=== PATIENT | female | born 1965 | race Caucasian/White ===

== ENCOUNTER 2016-04-21 09:41 | Day surgery (SDC) | payer BC ==
[2016-04-20 15:16] VITALS: BMI 37.8
[~2016-04-21 09:41] MED LIST: BENZOCAINE SPRAY 100 APPLIC/CAN ONE; BENZOCAINE SPRAY 100 APPLIC/CAN TOPICAL PRN
[2016-04-21 10:02] VITALS: RESP 16; TEMP 97.6
[2016-04-21] MEDS ORDERED: SODIUM CHLORIDE 0.9% 500 ML IV ONE (10:20)
[2016-04-21] MEDS ORDERED: MIDAZOLAM 2 MG/2 ML VIAL ONE (10:50)
[2016-04-21] MEDS ORDERED: fentaNYL (PF) 50 MCG/ML 2 ML AMP ONE (10:51)
[2016-04-21] MEDS ORDERED: BENZOCAINE SPRAY 100 APPLIC/CAN MUCOUS MEM ONE (11:10)
[2016-04-21] MEDS ORDERED: MIDAZOLAM 2 MG/2 ML VIAL IV ONE (11:10)
[2016-04-21] MEDS ORDERED: fentaNYL (PF) 50 MCG/ML 2 ML AMP IV ONE (11:15)
--- NOTE | 2016-04-21 12:06 | ECHOT ---
DATE OF SERVICE: CLINICAL INFORMATION: This transesophageal echocardiogram was done to evaluate the patient's tricuspid and mitral regurgitation as well as enlargement of the right atrium and right ventricle. Patient was given intravenous sedation with Versed and fentanyl and under moderate sedation, transesophageal echocardiogram was performed without any complications. PROCEDURE: The left ventricular chamber is normal in size with normal left ventricular systolic functions. Mitral valve morphology is normal. There is no evidence of mitral valve prolapse. There is mild mitral regurgitation noted. Left atrium is normal in size, left atrial appendage is clear. There is no evidence of any thrombus. Right ventricular chamber is mildly enlarged. Right atrium is moderately enlarged. Interatrial septum is intact. There is no evidence of PFO by saline contrast study. There is no evidence of any atrial septal defect. There is a moderate degree of tricuspid regurgitation noted which appears to be eccentric. FINAL IMPRESSION: 1. There is a mild degree of right ventricular, moderate degree of right atrial enlargement noted. Interatrial septum is intact. There is no evidence of patent foramen ovale or atrial septal defect. Further evaluation with a sleep study is suggested to rule out any evidence of significant sleep apnea. 2. There is a moderate degree of tricuspid regurgitation and mild degree of mitral regurgitation noted. Mitral valve morphology is normal. Aortic valve morphology is normal. The left ventricular systolic function is normal.
[2016-04-21 12:43] VITALS: BP 96/53; PULSE 64
== END 2016-04-21 12:52 | disposition home or self-care (01) ==
LOC: CATHCVL 09:41
PROVIDERS: ATTEND Internal Medicine Cardiovascular Disease
DX: I34.0 Nonrheumatic mitral (valve) insufficiency (principal); I36.1 Nonrheumatic tricuspid (valve) insufficiency; G47.30 Sleep apnea, unspecified; E66.9 Obesity, unspecified; Z68.37 Body mass index [BMI] 37.0-37.9, adult; Z79.51 Long term (current) use of inhaled steroids; Z79.899 Other long term (current) drug therapy; Z88.8 Allergy status to other drugs, medicaments and biological substances; Z98.84 Bariatric surgery status; Z87.891 Personal history of nicotine dependence
CPT/HCPCS: 93312; 93320; 93325; 99152; J2250; J3010

== ENCOUNTER → 2017-08-03 | Outpatient (CLI) | payer BC ==
[2017-08-03 18:35] LABS: Appearance,CSF Clear; CSF Tube Number 4; CSF Tube Volume 2.75; Nucleated Cells, CSF 0 u/L (0-5); Red Blood Cell,CSF 0 u/L (0-10)
[2017-08-03 18:39] LABS: Total Protein,CSF 23 mg/dL (12-60)
[2017-08-05 14:23] LABS: IgG - CSF 1.4 mg/dL (0.0 - 3.4); IgG/Albumin Index (CSF) 0.52 (0.00 - 0.77); Immunoglobulin G 941 mg/dL (700 - 1600)
== END | disposition home or self-care (01) ==
LOC: LABWHC1 15:36
PROVIDERS: ATTEND Psychiatry & Neurology Pain Medicine
DX: L98.9 Disorder of the skin and subcutaneous tissue, unspecified (principal); R42 Dizziness and giddiness; H53.8 Other visual disturbances; R90.82 White matter disease, unspecified
CPT/HCPCS: 36415; 82040; 82042; 82784; 83873; 83916; 84157; 87476; 88108; 89050

== ENCOUNTER 2017-12-14 11:28 | Day surgery (SDC) | payer BC, MEDICARE ==
[~2017-12-14 11:28] MED LIST changes: -BENZOCAINE SPRAY 100 APPLIC/CAN ONE; -BENZOCAINE SPRAY 100 APPLIC/CAN TOPICAL PRN; +SODIUM CHLORIDE 0.9% 1,000 ML IV SCH
[2017-12-14 11:59] VITALS: BP 127/80; TEMP 98
[2017-12-14 13:41] VITALS: PULSE 62; RESP 16
--- NOTE | 2017-12-14 17:47 | P.PCN ---
Preoperative Diagnosis: Diagnosis Recurrent blurring of vision and dizzy spells Twelve-lead ECG shows sinus rhythm normal DE narrow QRS normal ST segments no delta waves no epsilon waves normal QT interval Tilt table test per protocol Baseline blood pressure 127/60 mmHg Baseline heart rate 65 beats a minute patient was tilted upright at night with of 70 per protocol there is no change in her blood pressure no symptoms of progression is laid supine at the end of the procedure Impression Normal 12-lead ECG Normal heart rate and blood pressure response to upright tilting
== END 2017-12-14 13:58 | disposition home or self-care (01) ==
LOC: CATHEP 11:28
PROVIDERS: ATTEND Internal Medicine Clinical Cardiac Electrophysiology
DX: R42 Dizziness and giddiness (principal); H53.8 Other visual disturbances
CPT/HCPCS: 93005; 93660

== ENCOUNTER → 2018-01-12 | Outpatient (CLI) | payer BC, MEDICARE ==
[2018-01-12 11:22] LABS: Anisocytosis Slight; HCT 34.7 % (34.0-46.0); HGB 10.9 gm/dL (11.4-16.0); Hypochromasia Moderate; MCH 26.1 pg (25.0-35.0); MCHC 31.5 g/dL (31.0-37.0); MCV 82.8 fL (80.0-100.0); Mean Platelet Volume 10.5; Platelet Count 129 k/uL (150-450); RBC 4.19 m/uL (3.80-5.40); WBC 5.6 k/uL (3.8-10.6)
[2018-01-12 14:29] LABS: Erythrocyte Sedimentation Rate 32 mm/hr (0-20)
[2018-01-12 17:04] LABS: Folate, Serum 6.9 ng/mL
[2018-01-12 17:40] LABS: Iron Saturation 5.12 (12.00-45.00)
[2018-01-12 18:01] LABS: ALT 15 U/L (8-44); AST 22 U/L (13-35); Albumin/Globulin Ratio 1.87 (1.20-2.10); Alkaline Phosphatase 92 U/L (41-126); C Reactive Protein <0.4 mg/dL (0.0-0.8); Calcium 8.6 mg/dL (8.7-10.3); Carbon Dioxide 27.4 mmol/L (21.6-31.8); Chloride 105 mmol/L (96-109); Globulin 2.3 g/dL (2.1-3.7); Glucose 83 mg/dL (70-110); Potassium 3.9 mmol/L (3.5-5.5); Sodium 138 mmol/L (135-145); Total Bilirubin 0.4 mg/dL (0.3-1.2); Total Protein 6.6 g/dL (6.2-8.2)
[2018-01-14 12:01] LABS: Vitamin B1 55 ug/L (38-122)
== END ==
LOC: LABWHC1 10:13
PROVIDERS: ATTEND Psychiatry & Neurology Pain Medicine
DX: D50.9 Iron deficiency anemia, unspecified (principal); M25.50 Pain in unspecified joint; R53.83 Other fatigue; R42 Dizziness and giddiness
CPT/HCPCS: 36415; 80053; 82607; 82728; 82746; 83540; 83550; 84207; 84425; 84439; 84443; 84466; 84481; 84591; 85027; 85652; 86140

== ENCOUNTER 2018-01-26 18:36 | Inpatient (IN) | payer BC, MEDICARE ==
--- NOTE | 2018-01-26 20:37 | US ---
EXAMINATION TYPE: US venous doppler duplex LE LT DATE OF EXAM: 01/26/2018 8:26 PM COMPARISON: NONE CLINICAL HISTORY: tenderness. Left medial thigh area of pain and redness x 1 day SIDE PERFORMED: Left TECHNIQUE: The lower extremity deep venous system is examined utilizing real time linear array sonog sydni with graded compression, doppler sonography and color-flow sonography. VESSELS IMAGED: External Iliac Vein (EIV) Common Femoral Vein Deep Femoral Vein Greater Saphenous Vein * Femoral Vein Popliteal Vein Small Saphenous Vein * Proximal Calf Veins (* superficial vessels) Difficult and limited study due to patient body habitus, unable to do compression images at mid and distal femoral vein due to patient unable to tolerate probe pressure. Left Leg: Appears negative for DVT Grayscale, color doppler, spectral doppler imaging performed of the deep veins of the left lower extr emity. There is normal flow, compressibility, vascular waveforms. Left lower extremity subcutaneous edema is seen. IMPRESSION: No sonographic evidence of left lower extremity deep venous thrombosis. There is left lo wer extremity subcutaneous edema noted.
--- NOTE | 2018-01-26 20:41 | ED ---
General Adult HPI - General Chief complaint: Extremity Problem,Nontraumatic Stated complaint: poss blood clot Time Seen by Provider: 01/26/18 18:58 Source: patient Mode of arrival: ambulatory Limitations: no limitations - History of Present Illness Initial comments: 52-year-old female with past medical history of migraines, gastric bypass 5 years ago, superficial blood clots, peripheral edema present today for chief complaint of left mid thigh pain and redness x1 day. She states that she woke up this morning and had pain in her right anterior thigh and noticed redness, she was concerned about blood clot that she presented for evaluation. Patient also noted that she has had cold-like symptoms with congestion, cough, chills. She does admit to a headache, however she states she has migraines daily and this is no different from her usual headaches. Patient denies any fever, diarrhea, constipation or abdominal pain, nausea, vomiting, emesis, melena, hematochezia, calf pain, hemoptysis, chest pain, shortness of breath, dyspnea upon exertion. Patient does admit to increasing swelling of her baseline peripheral edema as well as redness. Patient was seen by a provider at [facility] earlier today who did evaluate legs however did not prescribe her any medication patient was told to follow-up with primary care provider. Pt was at [facility] for evaluation of low iron, low platelets, and various vitamin deficiencies. Remainder of ROS (-). Upon arrival pt vital signs stable. - Related Data Home Medications Medication Instructions Recorded Confirmed Gabapentin 800 mg PO TID 05/08/14 12/14/17 Imptb-U-Gowrderqehxli [Beano] 300 units PO DAILY 05/15/14 12/14/17 Biotin 5 mg PO DAILY 05/15/14 12/14/17 Cholecalciferol [Vitamin D3] 1,000 unit PO DAILY 05/15/14 12/14/17 Cyanocobalamin [Vitamin B-12 1 ml IM QMONTH 05/15/14 12/14/17 Injection] Nystatin 100,000 Unit/gm Powd 1 applic TOPICAL BID PRN 05/15/14 12/14/17 [Mycostatin Powder] SUMAtriptan SUCCINATE [Imitrex] 25 - 50 mg PO DAILY PRN 05/15/14 12/14/17 Sennosides/Docusate Sodium [Elle 1 tab PO DAILY 05/15/14 12/14/17 Colace] HYDROcodone/APAP 5-325MG [Wadley 1 tab PO Q6HR PRN 04/20/16 12/14/17 5-325] Butalb/Acetaminophen/Caffeine 1 cap PO Q8HR PRN 12/14/17 12/14/17 [Fioricet 50-325-40] Cyclobenzaprine [Flexeril] 5 mg PO HS 12/14/17 12/14/17 Florical 1 caplet PO DAILY 12/14/17 12/14/17 Fluticasone Nasal [place] [Flonase 1 spray NASAL DAILY 12/14/17 12/14/17 Nasal [place]] Pramipexole Di-HCl [Pramipexole 1.5 mg PO RT-TID 12/14/17 12/14/17 Dihydrochloride] Rasagiline Mesylate [Azilect] 1 mg PO DAILY 12/14/17 12/14/17 Allergies Allergy/AdvReac Type Severity Reaction Status Date / Time sucralfate [From Carafate] Allergy ULCERS TO Verified 01/26/18 18:57 MOUTH AND THROAT Review of Systems ROS Statement: Those systems with pertinent positive or pertinent negative responses have been documented in the HPI. ROS Other: All systems not noted in ROS Statement are negative. Constitutional: Denies: fever, chills, night sweats ENT: Reports: as per HPI (congestion). Denies: ear pain, throat pain Respiratory: Reports: as per HPI, cough. Denies: dyspnea, wheezes, hemoptysis, stridor Cardiovascular: Denies: chest pain, palpitations Gastrointestinal: Denies: abdominal pain, nausea, vomiting, diarrhea, constipation, hematemesis, melena, hematochezia Genitourinary: Denies: urgency, dysuria, frequency, hematuria Musculoskeletal: Reports: myalgia (left anterior thigh redness, pain to palpation) Skin: Reports: change in color (redness of the LE bilaterally). Denies: rash, lesions Neurological: Reports: headache (daily headaches-no changes). Denies: weakness , numbness, paresthesias, confusion, abnormal gait Past Medical History Past Medical History: Musculoskeletal Disorder, Neurologic Disorder, Osteoarthritis (OA), Sleep Apnea/CPAP/BIPAP Additional Past Medical History / Comment(s): HX MIGRAINES,LYMPHEDEMA MELISSA LEGS, CELLULITIS, DOES NOT USE CPAP,CHRONIC BACK PAIN-BULGING DISC, LACTOSE INTOLERANT, neuropathy, hx. heart murmur-"valve problems" per pt., has lost 200 pounds from bariatric surg., hx. subcu. emphysema after a perforated trachea from a difficult intubation History of Any Multi-Drug Resistant Organisms: None Reported Date of last positivie culture/infection: 2007 MDRO Source:: stool Past Surgical History: Bariatric Surgery, Hysterectomy, Joint Replacement, Orthopedic Surgery Additional Past Surgical History / Comment(s): arthroscopy knee, bilateral knee replacement, gastric bypass 2012, pain procedures Past Anesthesia/Blood Transfusion Reactions: Previous Problems w/ Anesthesia Additional Past Anesthesia/Blood Transfusion Reaction / Comment(s): hx. perforated trachea from a past intubation for knee surg., has needed fiber optic intubation or "glide scope" due to scar tissue since Past Psychological History: No Psychological Hx Reported Smoking Status: Former smoker Past Alcohol Use History: Occasional Past Drug Use History: None Reported - Past Family History Mother Family Medical History: No Reported History Father Family Medical History: No Reported History General Exam - General Exam Comments Initial Comments: General: The patient is awake and alert, in no distress, and does not appear acutely ill. Eye: Pupils are equal, round and reactive to light, extra-ocular movements are intact. No nystagmus. There is normal conjunctiva bilaterally. No signs of icterus. Ears, nose, mouth and throat: There are moist mucous membranes and no oral lesions. clear rhinorrhea. Throat non erythematous no tonsillar enlargement, lesions, exudates. Uvula midline. Neck: The neck is supple, there is no tenderness or JVD. Cardiovascular: There is a regular rate and rhythm. No murmur, rub or gallop is appreciated. Respiratory: Lungs are clear to auscultation, respirations are non-labored, breath sounds are equal. No wheezes, stridor, rales, or rhonchi. Gastrointestinal: Soft, non-distended, non-tender abdomen without masses or organomegaly noted. There is no rebound or guarding present. No CVA tenderness. Bowel sounds are unremarkable. Musculoskeletal: Normal ROM, no tenderness. Strength 5/5. Sensation intact. Radial pulses equal bilaterally 2+. Neurological: A&O x 3. CN II-XII intact, There are no obvious motor or sensory deficits. Coordination appears grossly intact. Speech is normal. Skin: Skin is warm and dry and no rashes or lesions are noted. Bilateral lower extremity edema, erythematous bilateral lower extremities that are warm to palpation. There is an area of the more proximal right thigh that is erythematous and warm to touch. Patient complains of pain in this area. No palpable masses Psychiatric: Cooperative, appropriate mood & affect, normal judgment. Limitations: no limitations Course Vital Signs 01/26/18 01/26/18 01/26/18 18:53 19:37 21:00 Temperature 97.5 F L 99.6 F Pulse Rate 83 86 76 Respiratory 18 20 18 Rate Blood Pressure 139/88 130/80 126/72 O2 Sat by Pulse 100 100 100 Oximetry 01/26/18 22:26 Temperature Pulse Rate 89 Respiratory 18 Rate Blood Pressure 119/68 O2 Sat by Pulse 100 Oximetry Medical Decision Making - Medical Decision Making Morbidly obese 52yo female with hc of peripheral edema. Vital signs unremarkable afebrile, laboratories denies revealed low platelet count, however patient is aware is following this with [facility]. Hemoglobin stable in comparison with previous studies. Patient states that this is also her baseline. Chest x-ray negative, influenza testing negative. Exam revealed erythematous bilateral lower extremity erythema, patient states that they are normally read however the area of the right anterior upper thigh is new, this area is painful to touch and erythematous upon physical examination. Since patient initial examination, the erythema seemed to spread. US negative for superficial or deep venous thrombosis. At this time I feel admission is appropriate for intravenous antibiotics for treatment of right lower extremity celluitis. Patient prefers admission, and is agreeable with plan. Case discussed with Dr. Jarrett who evaluated pt face to face, he spoke with Dr. Monique who accepted admission. No further orders at this time. Pt does not appear septic or toxic. Lactic (-), WBC WNL. Pt transferred to floor in stable condition. - Lab Data Result diagrams: 01/26/18 21:15 01/26/18 21:15 Lab Results 01/26/18 01/26/18 01/26/18 Range/Units 20:30 20:45 21:15 WBC 9.5 (3.8-10.6) k/uL RBC 4.19 (3.80-5.40) m/uL Hgb 10.8 L (11.4-16.0) gm/dL Hct 34.2 (34.0-46.0) % MCV 81.6 (80.0-100.0) fL MCH 25.9 (25.0-35.0) pg MCHC 31.7 (31.0-37.0) g/dL RDW 15.7 H (11.5-15.5) % Plt Count 145 L (150-450) k/uL Neutrophils % 83 % Lymphocytes % 8 % Monocytes % 4 % Eosinophils % 3 % Basophils % 0 % Neutrophils # 7.9 H (1.3-7.7) k/uL Lymphocytes # 0.8 L (1.0-4.8) k/uL Monocytes # 0.4 (0-1.0) k/uL Eosinophils # 0.3 (0-0.7) k/uL Basophils # 0.0 (0-0.2) k/uL Hypochromasia Slight Sodium (137-145) mmol/L Potassium (3.5-5.1) mmol/L Chloride (98-107) mmol/L Carbon Dioxide (22-30) mmol/L Anion Gap mmol/L BUN (7-17) mg/dL Creatinine (0.52-1.04) mg/dL Est GFR (CKD-EPI)AfAm (>60 ml/min/1.73 sqM) Est GFR (CKD-EPI)NonAf (>60 ml/min/1.73 sqM) Glucose (74-99) mg/dL Plasma Lactic Acid Shayan (0.7-2.0) mmol/L Calcium (8.4-10.2) mg/dL Total Bilirubin (0.2-1.3) mg/dL AST (14-36) U/L ALT (9-52) U/L Alkaline Phosphatase (38-126) U/L Total Protein (6.3-8.2) g/dL Albumin (3.5-5.0) g/dL Urine Color Light Yellow Urine Appearance Clear (Clear) Urine pH 7.0 (5.0-8.0) Ur Specific [place] 1.011 (1.001-1.035) Urine Protein Negative (Negative) Urine Glucose (UA) Negative (Negative) Urine Ketones Negative (Negative) Urine Blood Negative (Negative) Urine Nitrite Negative (Negative) Urine Bilirubin Negative (Negative) Urine Urobilinogen <2.0 (<2.0) mg/dL Ur Leukocyte Esterase Negative (Negative) Influenza Type A RNA Not Detected (Not Detectd) Influenza Type B (PCR) Not Detected (Not Detectd) 01/26/18 01/26/18 Range/Units 21:15 21:15 WBC (3.8-10.6) k/uL RBC (3.80-5.40) m/uL Hgb (11.4-16.0) gm/dL Hct (34.0-46.0) % MCV (80.0-100.0) fL MCH (25.0-35.0) pg MCHC (31.0-37.0) g/dL RDW (11.5-15.5) % Plt Count (150-450) k/uL Neutrophils % % Lymphocytes % % Monocytes % % Eosinophils % % Basophils % % Neutrophils # (1.3-7.7) k/uL Lymphocytes # (1.0-4.8) k/uL Monocytes # (0-1.0) k/uL Eosinophils # (0-0.7) k/uL Basophils # (0-0.2) k/uL Hypochromasia Sodium 137 (137-145) mmol/L Potassium 4.6 (3.5-5.1) mmol/L Chloride 107 (98-107) mmol/L Carbon Dioxide 24 (22-30) mmol/L Anion Gap 6 mmol/L BUN 10 (7-17) mg/dL Creatinine 0.61 (0.52-1.04) mg/dL Est GFR (CKD-EPI)AfAm >90 (>60 ml/min/1.73 sqM) Est GFR (CKD-EPI)NonAf >90 (>60 ml/min/1.73 sqM) Glucose 96 (74-99) mg/dL Plasma Lactic Acid Shayan 1.0 (0.7-2.0) mmol/L Calcium 9.1 (8.4-10.2) mg/dL Total Bilirubin 0.5 (0.2-1.3) mg/dL AST 24 (14-36) U/L ALT 22 (9-52) U/L Alkaline Phosphatase 111 (38-126) U/L Total Protein 7.1 (6.3-8.2) g/dL Albumin 3.9 (3.5-5.0) g/dL Urine Color Urine Appearance (Clear) Urine pH (5.0-8.0) Ur Specific [place] (1.001-1.035) Urine Protein (Negative) Urine Glucose (UA) (Negative) Urine Ketones (Negative) Urine Blood (Negative) Urine Nitrite (Negative) Urine Bilirubin (Negative) Urine Urobilinogen (<2.0) mg/dL Ur Leukocyte Esterase (Negative) Influenza Type A RNA (Not Detectd) Influenza Type B (PCR) (Not Detectd) Disposition Clinical Impression: Cellulitis of right lower extremity Disposition: [facility] Condition: Stable Referrals: Noman Ponce MD [Primary Care Provider] - 1-2 days Time of Disposition: 22:55 Decision to Admit Reason: Admit from EC Decision Date: 01/26/18 Decision Time: 22:56
[2018-01-26 20:58] LABS: Appearance,Urine Clear (Clear); Bilirubin,Urine Negative (Negative); Blood,Urine Negative (Negative); Color,Urine Light Yellow; Glucose,Urine (UA) Negative (Negative); Ketones,Urine Negative (Negative); Leukocyte Esterase,Urine Negative (Negative); Nitrite,Urine Negative (Negative); Protein,Urine Negative (Negative); Specific Gravity,Urine 1.011 (1.001-1.035); Urobilinogen,Urine <2.0 mg/dL (<2.0)
--- NOTE | 2018-01-26 20:59 | XR ---
EXAMINATION TYPE: XR chest 2V DATE OF EXAM: 01/26/2018 COMPARISON: 07/05/2012 HISTORY: Cough TECHNIQUE: Frontal and lateral views of the chest are obtained. FINDINGS: There is no focal air space opacity, pleural effusion, or pneumothorax seen. Vascular con gestion The cardiac silhouette size is mildly enlarged. The osseous structures are intact. IMPRESSION: Mild pulmonary vascular congestion and prominence of the cardiomediastinal silhouette ma y relate to decompensated congestive heart failure.
[2018-01-26 21:55] LABS: Basophils % (A) 0 %; Eosinophils # (A) 0.3 k/uL (0-0.7); Eosinophils % (A) 3 %; HCT 34.2 % (34.0-46.0); HGB 10.8 gm/dL (11.4-16.0); Hypochromasia Slight; Lymphocytes # (A) 0.8 k/uL (1.0-4.8); Lymphocytes % (A) 8 %; MCH 25.9 pg (25.0-35.0); MCHC 31.7 g/dL (31.0-37.0); MCV 81.6 fL (80.0-100.0); Monocytes # (A) 0.4 k/uL (0-1.0); Monocytes % (A) 4 %; Neutrophils # (A) 7.9 k/uL (1.3-7.7); Neutrophils % (A) 83 %; Platelet Count 145 k/uL (150-450); RBC 4.19 m/uL (3.80-5.40); RDW 15.7 % (11.5-15.5); WBC 9.5 k/uL (3.8-10.6)
[2018-01-26 22:11] LABS: ALT 22 U/L (9-52); AST 24 U/L (14-36); Albumin 3.9 g/dL (3.5-5.0); Alkaline Phosphatase 111 U/L (38-126); Anion Gap 6 mmol/L; Blood Urea Nitrogen 10 mg/dL (7-17); Calcium 9.1 mg/dL (8.4-10.2); Carbon Dioxide 24 mmol/L (22-30); Chloride 107 mmol/L (98-107); Glucose 96 mg/dL (74-99); Potassium 4.6 mmol/L (3.5-5.1); Sodium 137 mmol/L (137-145); Total Bilirubin 0.5 mg/dL (0.2-1.3); Total Protein 7.1 g/dL (6.3-8.2)
[2018-01-26] MEDS ORDERED: NALOXONE 0.4 MG/ML 1 ML VIAL IV PRN (22:46)
[2018-01-26] MEDS ORDERED: SODIUM CHLORIDE 0.9% 1,000 ML IV SCH (23:00)
[2018-01-26] MEDS ORDERED: BUTALB/APAP/CAFF 50-325-40MG TAB PO STA (23:20)
[2018-01-27] MEDS ORDERED: BUTALB/APAP/CAFF 50-325-40MG TAB PO PRN (00:51)
[2018-01-27] MEDS: PRAMIPEXOLE 0.5 MG TAB PO SCH ×4 (05:57→20:58)
[2018-01-27] MEDS: GABAPENTIN 400 MG CAP PO SCH ×4 (05:57→20:58)
[2018-01-27] MEDS: CYCLOBENZAPRINE 5 MG TAB PO SCH ×2 (05:57→23:53)
[2018-01-27] MEDS: SPIRONOLACTONE 25 MG TAB PO SCH (08:07)
[2018-01-27] MEDS: CHLORTHALIDONE 25 MG TAB PO SCH (08:08)
[2018-01-27] MEDS: HYDROcodone/APAP 5-325MG 1 EACH TAB PO PRN ×2 (08:12→20:18)
[2018-01-27] MEDS: RASAGILINE MESYLATE 1 MG PO SCH (09:06)
[2018-01-27] MEDS ORDERED: FUROSEMIDE 10 MG/ML 2 ML VIAL IV STA (15:11)
[2018-01-27] MEDS: ceFAZolin IN SWFI 2 GM/20 ML SYRINGE IVP SCH ×2 (17:19→23:52)
--- NOTE | 2018-01-27 19:12 | HP ---
HISTORY AND PHYSICAL DATE OF ADMISSION: 01/26/2018 DATE OF SERVICE: 01/27/2018 PRESENTING COMPLAINT: Lower extremity redness. HISTORY OF PRESENTING COMPLAINT: This is a very pleasant 52-year-old patient who follows with Dr. Ponce. Chronic stable medical conditions include osteoarthritis, obstructive sleep apnea (does not use a CPAP machine), bilateral lower extremity lymphedema, chronic spinal stenosis, lactose intolerance, peripheral neuropathy. The patient has also had bariatric surgery and lost about 200 pounds from the same. Patient does have lymphedema pumps that she uses at home about twice a day. Patient has been down to a specialized center at [facility] in the past. The patient always had some redness of her lower extremities, but for last 2 or 3 days was having increasing redness in both the lower extremities. There is some superficial breakdown of skin, and the redness has also gone a bit more proximally. Legs have been a bit more swollen, as she has not used her pump as frequently as she is supposed to use it. She says normally when she uses the pump the fluid does go down but often will build up again by the next day. She has had a low- grade fever. Admitted for the same. Started on IV ceftriaxone in the ER. REVIEW OF SYSTEMS: CONSTITUTIONAL: Tired. Low-grade fever. HEENT: None. RESPIRATORY: None. CARDIOVASCULAR: None. GASTROINTESTINAL: None. GENITOURINARY: None. MUSCULOSKELETAL: Pain in the joints. DERMATOLOGICAL: Redness in both lower extremities. LYMPHATICS: As above. PSYCHIATRY: None. NEUROLOGICAL: Numbness and tingling in the feet. PAST MEDICAL HISTORY: 1. DVT. 2. Osteoarthritis. 3. Sleep apnea. Does not use a CPAP machine. 4. Bilateral lymphedema. 5. Chronic low back pain from herniated disc. 6. Spinal stenosis. 7. Lactose intolerance. 8. Peripheral neuropathy. PAST SURGICAL HISTORY: 1. Bariatric surgery. Lost about 200 pounds. 2. Hysterectomy. 3. Joint replacement. 4. Arthroscopy of knee. 5. Bilateral knee replacement. 6. Gastric bypass in 2012. 7. Also had perforated trachea from a past intubation. SOCIAL HISTORY: The patient stopped smoking over 20 years ago. She smoked for about 7 years. Alcohol occasionally. Lives with her . FAMILY HISTORY: COPD. HOME MEDICATIONS: 1. Aldactone 25 mg a day. 2. Imitrex p.r.n. 3. Azilect 1 mg p.o. daily. 4. Pramipexole 1.5 p.o. t.i.d. 5. [place] 5 one tablet t.i.d. p.r.n. 6. Neurontin 800 mg t.i.d. 7. Vitamin D2 50,000 units p.o. q.7 days. 8. Flexeril 5 mg at bedtime. 9. Vitamin B12 injection 1000 mcg monthly. 10.Chlorthalidone 25 mg a day. 11.Fioricet 1 capsule p.o. q.8 p.r.n. ALLERGIES: CARAFATE. PHYSICAL EXAMINATION: Temperature 99.6, pulse 76, respiration 18, blood pressure 126/72, pulse ox 100% on room air. GENERAL APPEARANCE: Well built. BMI 55.6. Sitting up on a chair, tired-appearing. EYES: Pupils equal. Conjunctivae normal. HEENT: External appearance of nose and ears normal. Oral cavity normal. NECK: JVD unable to assess. Mass not palpable. RESPIRATORY: Effort normal. LUNGS: Slightly decreased breath sounds. CARDIOVASCULAR: First and second sounds normal. Both lower extremities grossly enlarged with some edema of the lower extremities. ABDOMEN: Distended, soft. Liver and spleen not palpable. LYMPHATIC: No lymph node palpable in neck or axillae. PSYCHIATRY: Alert and oriented x3. Mood and affect normal. NEUROLOGICAL: Pupils equal. Cranial nerves grossly intact. Decreased sensation in the feet. DERMATOLOGICAL: Redness of both the legs up to the knees with superficial breakdown of the skin of the lower extremities. INVESTIGATIONS: White count 9.5, hemoglobin 10.8, potassium 4.6. BUN and creatinine are normal. ASSESSMENT: 1. Bilateral lower extremity cellulitis below the knee, complicating underlying chronic lymphedema. 2. Bilateral severe lower extremity lymphedema. Patient does use lymphedema pump at home. 3. Primary osteoarthritis. 4. Obstructive sleep apnea. Does not use CPAP. 5. History of bariatric surgery. Lost over 200 pounds. 6. Morbid obesity; body mass index 55.6. 7. Essential hypertension. 8. Peripheral neuropathy; cause idiopathic. PLAN: At this point patient will be started on IV Ancef. Will use Silvadene cream with Kerlix and Wesly wraps to the lower extremities. Did ask the to bring the lymphedema pump from home. She can use it while she is here. Stop patient's IV fluid. Give one dose of IV Lasix for the fluid overload from the IV fluids. Care was discussed with the patient. Questions were answered. YANET / CALEBN: [id number] /
[2018-01-27] MEDS: SILVER sulfADIAZINE Cream 400 GM 1 APPLIC APPLIC TOPICAL SCH (20:31)
[2018-01-27] MEDS: NYSTATIN 100,000 UNIT/GM POWD 15 GM TOPICAL SCH (20:32)
[2018-01-28] MEDS: ceFAZolin IN SWFI 2 GM/20 ML SYRINGE IVP SCH ×3 (07:57→23:18)
[2018-01-28 08:33] LABS: Basophils % (A) 0 %; Eosinophils # (A) 0.3 k/uL (0-0.7); Eosinophils % (A) 4 %; HCT 32.5 % (34.0-46.0); Hypochromasia Moderate; Lymphocytes # (A) 0.8 k/uL (1.0-4.8); Lymphocytes % (A) 10 %; MCHC 30.6 g/dL (31.0-37.0); MCV 81.7 fL (80.0-100.0); Mean Platelet Volume 9.2; Monocytes # (A) 0.4 k/uL (0-1.0); Monocytes % (A) 4 %; Neutrophils # (A) 6.5 k/uL (1.3-7.7); Neutrophils % (A) 81 %; Platelet Count 127 k/uL (150-450); RBC 3.98 m/uL (3.80-5.40); RDW 15.4 % (11.5-15.5)
[2018-01-28 08:38] LABS: ALT 13 U/L (9-52); AST 16 U/L (14-36); Albumin 3.1 g/dL (3.5-5.0); Alkaline Phosphatase 74 U/L (38-126); Anion Gap 7 mmol/L; Blood Urea Nitrogen 11 mg/dL (7-17); Calcium 8.5 mg/dL (8.4-10.2); Carbon Dioxide 25 mmol/L (22-30); Chloride 105 mmol/L (98-107); Glucose 119 mg/dL (74-99); Potassium 3.9 mmol/L (3.5-5.1); Sodium 137 mmol/L (137-145); Total Bilirubin 0.3 mg/dL (0.2-1.3); Total Protein 6.1 g/dL (6.3-8.2)
[2018-01-28] MEDS: PRAMIPEXOLE 0.5 MG TAB PO SCH ×3 (10:06→21:41)
[2018-01-28] MEDS: GABAPENTIN 400 MG CAP PO SCH ×3 (10:07→21:41)
[2018-01-28] MEDS: CHLORTHALIDONE 25 MG TAB PO SCH (10:07)
[2018-01-28] MEDS: SPIRONOLACTONE 25 MG TAB PO SCH (10:07)
[2018-01-28] MEDS: NYSTATIN 100,000 UNIT/GM POWD 15 GM TOPICAL SCH ×2 (10:09→21:41)
[2018-01-28] MEDS: SILVER sulfADIAZINE Cream 400 GM 1 APPLIC APPLIC TOPICAL SCH ×2 (10:09→21:41)
[2018-01-28] MEDS: RASAGILINE MESYLATE 1 MG PO SCH (10:15)
[2018-01-28] MEDS: HYDROcodone/APAP 5-325MG 1 EACH TAB PO PRN (21:47)
[2018-01-28] MEDS: CYCLOBENZAPRINE 5 MG TAB PO SCH (23:18)
--- NOTE | 2018-01-29 02:09 | PN ---
PROGRESS NOTE DATE OF SERVICE: 01/28/2018 PRESENTING COMPLAINT: Lower extremity cellulitis. INTERVAL HISTORY: This patient has bilateral chronic lower extremity lymphedema, present bilateral lower extremity cellulitis, put on topical Silvadene, IV Ancef, feeling better. Edema is coming down. Overall feeling better. The patient actually did walk a bit today. REVIEW OF SYSTEMS: Done for constitutional, cardiovascular, GI, pulmonary and relevant findings as above. CURRENT MEDICATIONS: Reviewed that include IV Ancef and Silvadene. PHYSICAL EXAMINATION: VITAL SIGNS: Temperature 99.1, pulse 90, respiratory 18, blood pressure 108/70, pulse ox 95% on room air. GENERAL APPEARANCE: Sitting up, comfortable. EYES: Pupils equal. Conjunctivae normal. NECK: JVD not raised. Mass not palpable. RESPIRATORY: Effort normal. LUNGS are clear. CARDIOVASCULAR: 1st and 2nd sounds normal. No edema. ABDOMEN: Soft, nontender. Liver and spleen not palpable. Lower extremities in an Wesly wrap. INVESTIGATIONS: White count 8, hemoglobin 10, potassium 3.9. ASSESSMENT: 1. Bilateral lower extremity cellulitis below the knee complicating underlying chronic lymphedema with clinical response. 2. Bilateral severe lower extremity lymphedema. Patient to continue with lymphedema pumps. 3. Primary osteoarthritis. 4. Obstructive sleep apnea, does not use CPAP. 5. History of bariatric surgery, lost over 200 pounds. 6. Morbid obesity BMI 35.6. 7. Essential hypertension. 8. Peripheral neuropathy idiopathic. 9. Intertriginous Mindy infections in the skin folds. PLAN: Care was discussed with the patient to give at least 24 hours of more IV antibiotics. Overall doing better. MMODL / IJN: [id number] /
[2018-01-29 07:28] VITALS: RESP 16
[2018-01-29] MEDS: SPIRONOLACTONE 25 MG TAB PO SCH (09:05)
[2018-01-29] MEDS: CHLORTHALIDONE 25 MG TAB PO SCH (09:05)
[2018-01-29] MEDS: GABAPENTIN 400 MG CAP PO SCH ×2 (09:05→17:40)
[2018-01-29] MEDS: PRAMIPEXOLE 0.5 MG TAB PO SCH ×2 (09:05→17:40)
[2018-01-29] MEDS: ceFAZolin IN SWFI 2 GM/20 ML SYRINGE IVP SCH ×2 (09:06→17:40)
[2018-01-29] MEDS: RASAGILINE MESYLATE 1 MG PO SCH (09:06)
[2018-01-29] MEDS: NYSTATIN 100,000 UNIT/GM POWD 15 GM TOPICAL SCH (09:08)
[2018-01-29 15:01] VITALS: BP 128/65; PULSE 72; TEMP 98.1
[2018-01-29] MEDS: SILVER sulfADIAZINE Cream 400 GM 1 APPLIC APPLIC TOPICAL SCH (17:41)
--- NOTE | 2018-01-30 08:26 | DS ---
DISCHARGE SUMMARY DATE OF ADMISSION: 01/26/18. DATE OF DISCHARGE: 01/29/18. FINAL DIAGNOSES: 1. Bilateral lower extremity cellulitis below the knee complicating underlying chronic lymphedema with clinical response. This is an acute presentation. 2. Bilateral severe lower extremity lymphedema. The patient does use lymphedema pumps at home with acute exacerbation, increasing swelling. 3. Primary osteoarthritis. 4. Obstructive sleep apnea, does not use CPAP. 5. History of bariatric surgery, lost over 100 pounds. 6. Morbid obesity BMI 35.6. 7. Essential hypertension. 8. Peripheral neuropathy idiopathic. 9. Intertriginous Mindy infection in the skin folds. HOSPITAL COURSE: This patient with chronic lymphedema uses lymphedema pumps presented with cellulitis lower extremity, responded to IV Ancef and Silvadene cream with Kerlix and Wesly wrap. Edema had gone down. Patient is back ambulating, greatly improved. Care was discussed at length with the patient and the today. The patient will be discharged home after the last dose of antibiotic today. Redness and swelling greatly improved. On examination: Afebrile, pulse 72, respirations 16, blood pressure 120/65. LUNGS: Fair air entry. Decreased redness, chronic swelling of the lower extremities. White count 8. DISCHARGE MEDICATIONS: Neurontin 800 mg t.i.d., vitamin B12 injection 1000 mcg every month. Imitrex p.r.n., [place] 5 one tablet t.i.d. p.r.n., Fioricet 1 capsule q.8h p.r.n., Flexeril 5 mg q.h.s., pramipexole 1.5 mg p.o. t.i.d., 1 mg p.o. daily, chlorthalidone 25 mg p.o. daily, vitamin D2 64283 units every 7 days, Aldactone 25 mg a day, Keflex 500 mg p.o. q.6h 20. Nystatin topical b.i.d. to the folds. Silvadene 1% topical cream b.i.d. lower extremity with Kerlix and Wesly wrap. DISPOSITION: Home. FOLLOWUP: Follow up with Dr. Ponce in 1 week. Patient to continue with the pain pump. Discussion and discharge planning more than 35 minutes. MMODL / IJN: [id number] /
== END 2018-01-29 18:23 | disposition home or self-care (01) | DRG 603 ==
LOC: EC 18:36 → 4MS4W 22:41
PROVIDERS: ADMIT Hospitalist; ATTEND Hospitalist
DX: L03.115 Cellulitis of right lower limb (principal); Z68.43 Body mass index [BMI] 50.0-59.9, adult; L03.116 Cellulitis of left lower limb; B37.2 Candidiasis of skin and nail; D69.6 Thrombocytopenia, unspecified; E66.01 Morbid (severe) obesity due to excess calories; E73.9 Lactose intolerance, unspecified; E87.70 Fluid overload, unspecified; G43.909 Migraine, unspecified, not intractable, without status migrainosus; G47.33 Obstructive sleep apnea (adult) (pediatric); G60.9 Hereditary and idiopathic neuropathy, unspecified; I10 Essential (primary) hypertension; I89.0 Lymphedema, not elsewhere classified; M19.91 Primary osteoarthritis, unspecified site; M48.00 Spinal stenosis, site unspecified; Z82.5 Family history of asthma and other chronic lower respiratory diseases; Z87.891 Personal history of nicotine dependence; Z90.710 Acquired absence of both cervix and uterus; Z96.653 Presence of artificial knee joint, bilateral; Z98.84 Bariatric surgery status; Z88.8 Allergy status to other drugs, medicaments and biological substances; Z86.718 Personal history of other venous thrombosis and embolism; E56.9 Vitamin deficiency, unspecified
CPT/HCPCS: 36415; 71046; 80053; 81003; 83605; 85025; 87040; 87502

== ENCOUNTER 2018-02-22 09:13 | Day surgery (SDC) | payer BC, MEDICARE ==
[2018-02-18 13:00] VITALS: BMI 52.9
[~2018-02-22 09:13] MED LIST changes: +LACTATED RINGERS 1,000 ML IV SCH; +LIDOCAINE 1% 20 ML VIAL (10MG/ML) FOR IV START INTRADERMA PRN; +MIDAZOLAM (PF) 2 MG/2 ML VIAL IV PRN; -SODIUM CHLORIDE 0.9% 1,000 ML IV SCH
[2018-02-22 10:26] VITALS: TEMP 97.7
[2018-02-22] MEDS ORDERED: KETAMINE 10 MG/ML 20 ML VIAL ONE (11:33)
[2018-02-22] MEDS ORDERED: PROPOFOL 10 MG/ML 20 ML VIAL IV ONE (11:33)
[2018-02-22] MEDS ORDERED: MIDAZOLAM 2 MG/2 ML VIAL ONE (11:33)
[2018-02-22 12:40] VITALS: BP 107/61; PULSE 66; RESP 16
--- NOTE | 2018-02-22 12:55 | P.PCN ---
Date of Procedure: 02/22/18 Procedure(s) Performed: Procedure: Esophagogastroduodenoscopy and biopsy. Total colonoscopy. Preoperative diagnosis: Iron deficiency anemia. Postoperative diagnosis: 1. S/P gastric bypass surgery with no obvious abnormalities in the esophagus, gastric remnant or small bowel. 2. Biopsies obtained from the small bowel. 3. Colonoscopy reveals normal colon and terminal ileum. Preparation: HalfLytely prep. Sedation: Was provided by anesthesia. Brief clinical history: The patient is a 52-year-old female who is scheduled for this evaluation because of history of iron deficiency anemia. She had LAP- BAND surgery in the past and then in 2012 this was changed to a gastric bypass surgery. The patient had an upper endoscopy around that time but had no prior colonoscopy. She has no abdominal complaints or overt bleeding including hematochezia or melena. There is family history of colon cancer in her grandparent. Procedure: With the patient on her left lateral decubitus position and after informed consent and adequate sedation, I passed the Olympus-GIF 10/13/2018 video upper endoscope through the cricopharyngeus down the esophagus GE junction was around 36 cm from the incisors. The endoscope was then advanced into the gastric remnant followed by advancing the endoscope into the small bowel. Patient had prior gastric bypass surgery. The small bowel was examined for a good distance and it appeared normal. The gastric remnant and the area of anastomosis appeared normal so did the esophagus. I obtained multiple biopsies from the small intestine then the endoscope was withdrawn and I then proceeded to perform the colonoscopy. Perianal area did not show any fissures or fistulas. There were no masses felt on digital rectal examination. The Olympus CFH 190 and video colonoscope was then inserted in the rectum in the usual fashion and advanced to the cecum. I intubated the ileocecal valve and examined the terminal ileum as well. Terminal ileum and colon appeared healthy with no edema, erythema, friability, ulceration, exudation or spontaneous bleeding. No polyps or tumors were seen or any obvious diverticular disease or other pathology. I retroflexed the endoscope in the rectum before the endoscope was withdrawn. The patient tolerated the procedure well. Plan: The patient was reassured. Will await biopsy results. She will follow- up with you as planned. Its possible that her iron deficiency, in the absence of significant findings today, is secondary to her gastric bypass surgery. She will discuss that with you. I will be happy to see in the future if needed.
== END 2018-02-22 13:11 | disposition home or self-care (01) ==
LOC: ORWHC2ENDO 09:13
DX: D50.9 Iron deficiency anemia, unspecified (principal); M19.90 Unspecified osteoarthritis, unspecified site; G43.909 Migraine, unspecified, not intractable, without status migrainosus; G47.33 Obstructive sleep apnea (adult) (pediatric); Z86.718 Personal history of other venous thrombosis and embolism; Z98.84 Bariatric surgery status; Z80.0 Family history of malignant neoplasm of digestive organs; J43.9 Emphysema, unspecified; Z79.891 Long term (current) use of opiate analgesic; Z79.899 Other long term (current) drug therapy; Z79.2 Long term (current) use of antibiotics
CPT/HCPCS: 88305; 45378; 43239; J2250; J2704

== ENCOUNTER → 2018-05-23 | Outpatient (CLI) | payer BC, MEDICARE ==
--- NOTE | 2018-05-25 08:17 | NM ---
EXAMINATION TYPE: NM WBC limited DATE OF EXAM: 05/24/2018 COMPARISON: Right calcaneal x-ray May 20, 2018. Outside Whole body bone scan March 25, 2018. HISTORY: Open sore right heel since January 2018. TECHNIQUE: Following administration of 21.6 mCi Tc99m Ceretec. Images obtained 4 hour(s) and 24 gary r(s) post injection. Imaging is performed of the bilateral lower legs, ankles, and feet. FINDINGS: Exam noted suboptimal secondary to patient's large body habitus. There is no obvious suspicious incre ased radiotracer uptake at area of clinical concern right hindfoot level a recent calcaneus to sugges t acute infection or osteomyelitis. IMPRESSION: As above.
== END ==
LOC: RADNMMAIN 07:22
PROVIDERS: ATTEND Podiatrist
DX: L89.890 Pressure ulcer of other site, unstageable (principal)
CPT/HCPCS: 78805; A9569

== ENCOUNTER 2019-03-16 11:53 | Inpatient (IN) | payer BC, MEDICARE ==
[2019-03-16] MEDS ORDERED: NALOXONE 0.4 MG/ML 1 ML VIAL IV PRN (14:56)
[2019-03-16] MEDS ORDERED: ACETAMINOPHEN TAB 500 MG TAB PO PRN (14:58)
[2019-03-16] MEDS ORDERED: ALPRAZolam 0.25 MG TAB PO PRN (14:58)
[2019-03-16 15:46] LABS: Basophils % (A) 1 %; Eosinophils # (A) 0.3 k/uL (0-0.7); Eosinophils % (A) 6 %; HCT 39.3 % (34.0-46.0); HGB 12.3 gm/dL (11.4-16.0); Hypochromasia Slight; Lymphocytes # (A) 1.1 k/uL (1.0-4.8); Lymphocytes % (A) 21 %; MCH 29.4 pg (25.0-35.0); MCHC 31.4 g/dL (31.0-37.0); MCV 93.6 fL (80.0-100.0); Mean Platelet Volume 8.8; Monocytes # (A) 0.2 k/uL (0-1.0); Monocytes % (A) 4 %; Neutrophils # (A) 3.5 k/uL (1.3-7.7); Neutrophils % (A) 67 %; Platelet Count 193 k/uL (150-450); RDW 12.9 % (11.5-15.5); WBC 5.2 k/uL (3.8-10.6)
[2019-03-16 15:51] LABS: ALT 12 U/L (4-34); AST 28 U/L (14-36); African American GFR (CKD) >90 (>60 ml/min/1.73 sqM); Albumin 3.7 g/dL (3.5-5.0); Alkaline Phosphatase 115 U/L (38-126); Anion Gap 7 mmol/L; Blood Urea Nitrogen 19 mg/dL (7-17); Calcium 8.6 mg/dL (8.4-10.2); Carbon Dioxide 23 mmol/L (22-30); Chloride 109 mmol/L (98-107); Glucose 80 mg/dL (74-99); Non-African American GFR(CKD) >90 (>60 ml/min/1.73 sqM); Sodium 139 mmol/L (137-145); Total Bilirubin 0.6 mg/dL (0.2-1.3); Total Protein 7.5 g/dL (6.3-8.2)
[2019-03-16] MEDS ORDERED: PNEUMOCOCCAL VACC-PNEUMOVAX 23 25 MCG/0.5 ML VIAL IM ONE (15:51)
[2019-03-16 16:04] LABS: Potassium 4.4 mmol/L (3.5-5.1)
[2019-03-16] MEDS: HEPARIN SODIUM,PORCINE 5,000 UNIT/ML 1 ML VIAL SQ SCH ×2 (16:54→21:21)
[2019-03-16] MEDS: HYDROcodone/APAP 5-325MG 1 EACH TAB PO PRN (16:54)
[2019-03-16] MEDS ORDERED: FLUTICASONE 50MCG/SPRAY NASAL 16GM EA NOSTRIL PRN (17:18)
[2019-03-16] MEDS ORDERED: MELATONIN 5 MG TABLET PO PRN (17:18)
[2019-03-16] MEDS ORDERED: SUMAtriptan SUCCINATE 25 MG TAB PO PRN (17:18)
[2019-03-16] MEDS ORDERED: HYDROmorphone 0.5 MG/0.5 ML SYRINGE IVP PRN (17:19)
[2019-03-16] MEDS ORDERED: VANCOMYCIN IV PER PHARMACY 1 EACH MISC MISCELLANE PRN (17:20)
[2019-03-16] MEDS ORDERED: VANCOMYCIN 2,000 MG in SODIUM CHLORIDE 0.9% 250 ML IVPB ONE (18:00)
[2019-03-16] MEDS ORDERED: INFLUENZA VACCINE (6 MOS+) 60 MCG/0.5 ML SYRINGE IM ONE (18:06)
[2019-03-16] MEDS: SODIUM CHLORIDE 0.9% 1,000 ML IV SCH (18:07)
[2019-03-16 19:23] LABS: Glucose,Whole Blood 160 mg/dL (75-99)
[2019-03-16] MEDS ORDERED: diphenhydrAMINE 50 MG/ML 1 ML VIAL IVP STA (19:27)
[2019-03-16] MEDS: FAMOTIDINE 20 MG/2 ML VIAL IV SCH (19:36)
[2019-03-16] MEDS ORDERED: DEXAMETHASONE SOD PHOSPHATE 10 MG/ML 1 ML VIAL IV STA (19:42)
--- NOTE | 2019-03-16 19:46 | HP ---
HISTORY AND PHYSICAL DATE OF SERVICE: 03/16/2019 CHIEF COMPLAINT: Pain and swelling of the right knee. HISTORY OF PRESENT ILLNESS: This 53-year-old woman with a past history of DJD, history of sleep apnea, history of MRSA, history of bariatric surgery, history of obesity with body mass of 56.7, being followed by Dr. Ponce in the outpatient setting, had previous knee surgery by Dr. Espinal several years ago. For the last 3 weeks the patient is noted to have some pain and infection and redness over the right knee area. Dr. Ponce saw the patient. Outpatient antibiotics were given. Patient was given a course of Keflex followed by a course of Levaquin followed by a course of Bactrim because of lack of improvement. Dr. Ponce called me this morning and was concerned about the persistent infection and the patient was directly transferred to [facility] for further evaluation and treatment. The patient apparently had significant erythema and tenderness also last night and some drainage with significant amount of purulent fluid also according the patient. There is no history of fever, rigors. No headache, loss of consciousness, seizures. PAST MEDICAL HISTORY: History of sleep apnea, history of DJD, history of MRSA, history of bariatric surgery, history of bladder surgery. HOME MEDICATIONS: 1. Bactrim DS 1 p.o. b.i.d. 2. Imitrex 25 mg p.o. 3. Azilect 1 mg q.h.s. 4. ( ) 1.5 mg t.i.d. 5. Melatonin 10 mg q.h.s. p.r.n. 6. [place] 5 mg p.o. t.i.d. 7. Gabapentin 800 mg p.o. q.h.s. 8. Flonase 1-2 sprays daily p.r.n. 9. Flexeril 5 mg q.h.s. 10.Fioricet 1 capsule p.o. q.6h p.r.n. ALLERGIES: CARAFATE. FAMILY HISTORY: History of COPD in the family. SOCIAL HISTORY: Previous smoking, occasional alcohol intake. REVIEW OF SYSTEMS: ENT No history of diminished hearing or vision. CARDIOVASCULAR No angina or palpitations. RESPIRATORY As mentioned earlier. GI No nausea, vomiting, or diarrhea. No dysuria. NERVOUS No numbness or weakness. ALLERGY/IMMUNOLOGY No asthma or hayfever. MUSCULOSKELETAL As mentioned earlier. HEMATOLOGY/ONCOLOGY No history of anemia. ENDOCRINE No history of diabetes or hypothyroidism. PSYCHIATRY As mentioned earlier. CONSTITUTIONAL: As mentioned earlier. DERMATOLOGY: As mentioned. PHYSICAL EXAMINATION: Alert and oriented x3. Pulse is 92, blood pressure 140/90, respiration 16, temperature 97 degrees, pulse ox 98% on room air. HEENT: Conjunctivae normal. Oral mucosa moist. NECK: No jugular venous distention. No lymph node enlargement. CARDIOVASCULAR: S1, S2. RESPIRATORY: Diminished breath sounds at the bases. A few scattered rhonchi and crackles. Expiratory wheezing also present. ABDOMEN: Soft, nontender. No mass palpable. LEGS: Bilateral leg edema and swelling present. NERVOUS SYSTEM: Higher functions mentioned earlier. Moves all four limbs. No focal deficits. LYMPHATICS: No lymph node in neck or axilla. SKIN: As mentioned earlier. JOINTS: No active deforming arthropathy. Movement of the right knee is painful. On examination of the right knee, significant pain and swelling and erythema tenderness some discharge also present. ASSESSMENT: 1. Right knee cellulitis with abscess. 2. Bilateral leg lymphedema. 3. Obesity with body mass index 56.7. 4. History of degenerative joint disease. 5. History of sleep apnea. 6. History of peripheral neuropathy. 7. History of cellulitis. 8. History of sleep apnea. 9. History of spinal stenosis. 10.History of MRSA, heel. 11.History of recent bilateral heel ulcers. 12.History of bariatric surgery. 13.History of hysterectomy. 14.Remote history of nicotine dependence. RECOMMENDATIONS AND DISCUSSION: This 53-year-old woman who presented with multiple complex medical issues, we will monitor the patient closely, continue the current medication, continue symptomatic treatment. Otherwise, at this time I recommend resume the home medications. I would also recommend broad-spectrum IV antibiotics, infectious disease evaluation. I recommended IV vancomycin. Other than that, cultures, Orthopedic consultation, resume the home medications, DVT prophylaxis. See orders for details. Guarded prognosis. Further recommendations to follow. Will also send new cultures. I will initiate IV vancomycin. 1. 2. Thank you see orders for details thank. MMODL / IJN: [id number] /
[2019-03-16] MEDS: GABAPENTIN 400 MG CAP PO SCH (21:20)
[2019-03-16] MEDS: RASAGILINE MESYLATE 1 MG PO SCH (21:21)
[2019-03-16] MEDS: CYCLOBENZAPRINE 5 MG TAB PO SCH (21:21)
[2019-03-17] MEDS ORDERED: VANCOMYCIN 2,000 MG in SODIUM CHLORIDE 0.9% 500 ML 500 ML IVPB SCH (06:00)
--- NOTE | 2019-03-17 06:59 | CONS ---
CONSULTATION DATE OF SERVICE: 03/16/2019 REASON FOR CONSULTATION: Right lower extremity cellulitis with nonhealing wound to the right knee area. HISTORY OF PRESENT ILLNESS: The patient is a 53-year-old female who has been transferred to [facility] for management of the right knee area wound cellulitis and right lower extremity cellulitis. Apparently the patient's symptoms started initially in the lower legs where the patient did have increasing swelling and redness. The patient was evaluated by her primary care physician, has been treated with oral Keflex without any improvement. Subsequently the patient was seen in the ER at [facility] where the patient was treated with IV antibiotic x1 and subsequently discharged home on Levaquin, did not have any improvement. Subsequent has been treated with oral Bactrim DS. However, the patient did have persistent swelling and redness to the right leg and she did develop a wound on the right knee area that is result of opening of 3 small blisters. The patient has been complaining of pain to the right knee area, more of a dull aching to sharp almost 7 to 8 out of 10 and worse with movement of the knee area along with swelling and redness of the lower extremity. With persistent cellulitis and non-improvement, the patient has been sent to [facility] for admission and IV antibiotic therapy. Infection Disease was consulted for further recommendation regarding antibiotics. REVIEW OF SYSTEMS: CONSTITUTIONAL: Positive for weakness and some chills. Did have some fever at home, however, has been how high was the fever. EYES: No complaint. ENT: No complaint. RESPIRATORY: No complaint. CARDIOVASCULAR: No complaint. GENITOURINARY: No complaint. GASTROINTESTINAL: No complaint. MUSCULOSKELETAL: As per HPI. INTEGUMENTARY: As per HPI. PSYCHOLOGICAL: No complaint. ENDOCRINE: No complaint. NEUROLOGIC: No complaint. PAST MEDICAL HISTORY: Significant for osteoarthritis, sleep apnea, DVT, bilateral lower extremity lymphedema, chronic back pain, bulging disc, spinal stenosis, peripheral neuropathy. PAST SURGICAL HISTORY: Bariatric surgery, hysterectomy, bilateral knee replacement, gastric bypass, . SOCIAL HISTORY: Patient quit smoking about 20 years ago, 7 pack a year of smoking. Occasionally drinks. , lives with . FAMILY HISTORY: Positive for COPD. ALLERGIES: Allergies to SUCRALFATE. MEDICATIONS: Medications include the patient is currently on Tylenol, [place], Xanax, Flexeril, Flonase nasal spray, Neurontin, heparin, Dilaudid, melatonin, Theragran, Narcan, Protonix, Imitrex, vancomycin pharmacy to dose. PHYSICAL EXAMINATION: On examination, blood pressure 140/90 with a pulse of 92, temperature 97. She is 98% on room air. General description is a middle-aged female lying in bed in no distress. No tachypnea or accessory muscle of respiration use. HEENT: Examination shows no pallor or scleral icterus. Oral mucous membrane is dry. No pharyngeal erythema or thrush. Neck: Trachea central. No thyromegaly. LUNGS: Unlabored breathing, clear to auscultation anteriorly. No wheeze or crackle. HEART: S1, S2. Regular rate and rhythm. ABDOMEN: Soft, no tenderness. No guarding or rigidity. EXTREMITIES: Right knee area did have small swelling redness in the superficial wound. Areas was cleaned and deep cultures obtained. Did have some swelling and minimal redness to the right leg area as well, but current no blister or any open wound. NEUROLOGICALLY: Patient is awake, alert, oriented x3. Mood and affect normal. LABS: Hemoglobin 12.3, white count 5.2, BUN of 19 creatinine 0.68. Liver enzymes are normal. Electrolytes are normal. DIAGNOSTIC IMPRESSION AND PLAN: Patient admitted to the hospital with right knee area pain, swelling, redness in this patient is who did have persistent nonhealing lower extremity cellulitis for which the patient has failed treatment with oral Keflex, Bactrim and Levaquin therapy. The wound on the right knee area is slightly concerning as the patient did have underlying prosthetic knee but wound did not seem to be tracking down. The patient currently with no high-grade fever or significant leukocytosis for concern for deep infection. PLAN: 1. Wound cultures will be repeated as well blood culture will be followed. 2. We will start the patient on vancomycin pharmacy to dose target of 15 while watching her kidney function and vanco trough closely. 3. Local wound care to the right knee with dry protective dressing. 4. Will follow up on the clinical condition and culture to further adjust medication if needed. Thank you for this consultation. Will follow this patient along with you. MMODL / IJN: [id number] /
[2019-03-17 08:30] LABS: Basophils % (A) 0 %; Eosinophils % (A) 1 %; HCT 37.4 % (34.0-46.0); HGB 12.2 gm/dL (11.4-16.0); Lymphocytes # (A) 0.6 k/uL (1.0-4.8); Lymphocytes % (A) 9 %; MCHC 32.7 g/dL (31.0-37.0); MCV 91.8 fL (80.0-100.0); Mean Platelet Volume 9.2; Monocytes # (A) 0.2 k/uL (0-1.0); Monocytes % (A) 3 %; Neutrophils # (A) 6.6 k/uL (1.3-7.7); Neutrophils % (A) 88 %; Platelet Count 182 k/uL (150-450); RBC 4.07 m/uL (3.80-5.40); RDW 12.8 % (11.5-15.5); WBC 7.5 k/uL (3.8-10.6)
[2019-03-17 08:40] LABS: African American GFR (CKD) >90 (>60 ml/min/1.73 sqM); Anion Gap 4 mmol/L; Blood Urea Nitrogen 18 mg/dL (7-17); Calcium 8.8 mg/dL (8.4-10.2); Carbon Dioxide 26 mmol/L (22-30); Chloride 107 mmol/L (98-107); Glucose 138 mg/dL (74-99); Non-African American GFR(CKD) >90 (>60 ml/min/1.73 sqM); Potassium 4.8 mmol/L (3.5-5.1); Sodium 137 mmol/L (137-145)
--- NOTE | 2019-03-17 08:42 | P.CNOR ---
<Dede Givens Jermaine - Last Filed: 03/17/19 09:29> History of Present Illness - [facility] Consult date: 03/17/19 Consult reason: other (Right knee abscess and cellulitis) History of present illness: The patient is a pleasant 53-year-old female with a medical history of sleep apnea, MRSA, bariatric surgery, obesity, osteoarthritis, DVT, bilateral lower extremity lymphedema, chronic low back pain, and peripheral neuropathy, who presented to [facility] via transfer from [place] for bilateral lower leg cellulitis and right knee abscess. She states that she noticed the right knee abscess approximately 3 weeks ago. There were 3 small blisters that interrupted after she noticed bilateral lower leg cellulitis which she has had many times in the past. The patient went to her primary care physician and she was started on Keflex. However she had no improvement and she went to the ER and [place] with the patient was given an IV antibiotic and discharged home on Levaquin. Her right knee continued to worsen and she noticed a large amount of purulent drainage coming out of the wound. She was then treated with Bactrim DS but the knee continued to worsen. Patient was transferred to [facility] for further evaluation and care. She is status post bilateral total knee replacements by Dr. Espinal in the past. She denies any previous infection to her knees but does have a significant history of recurrent lower leg cellulitis. Orthopedics was consulted for further evaluation and care. A culture of the wound has been obtained and results are pending. The patient has been seen by internal medicine and infectious disease. The patient was started on vancomycin but noticed soon after the infusion was started and she developed shortness of breath, redness in the face, and warmth. The infusion was stopped and IV fluids, Benadryl, and IV steroids were given. Antibiotics have been switched to daptomycin. The patient states overall she is feeling well but has noticed chills at night over the last couple weeks. She denies any specific fever. She states she has some pain on ambulation but mostly tightness in the anterior knee. She is able to move the knee without significant pain. Review of Systems Constitutional: Reports chills, Denies fever, Denies malaise Cardiovascular: Denies chest pain, Denies shortness of breath Respiratory: Denies cough Gastrointestinal: Denies abdominal pain, Denies diarrhea, Denies nausea, Denies vomiting Musculoskeletal: right: knee pain, knee stiffness, knee swelling Integumentary: Reports darkening of skin Past Medical History Past Medical History: Musculoskeletal Disorder, Neurologic Disorder, Osteoarthritis (OA), Sleep Apnea/CPAP/BIPAP Additional Past Medical History / Comment(s): Superficial blood clot R leg, lymphedema bilateral legs, neuropathy bilateral legs/feet, bilateral lower extremity cellulitis, bilateral heel ulcers and pt thinks heels might be starting open again, murmur/valvular disease, FARHAT without device, iron anemia with past infusions, chronic low back pain/bulging discs, spinal stenosis, migraines, RLS, falls, lactose intolerance. History of Any Multi-Drug Resistant Organisms: MRSA Year Discovered:: 06/17/18 MDRO Source:: MRSA HEEL Past Surgical History: Bariatric Surgery, Bladder Surgery, Hysterectomy, Joint Replacement, Orthopedic Surgery Additional Past Surgical History / Comment(s): Gastric lap band with removal, gastric bypass, EGD, colonoscopy, cystocele, bilateral knee arthroscopies, bilateral total knee arthroplasties, pain clinic procedures, R heel multiple debridements. Past Anesthesia/Blood Transfusion Reactions: Previous Problems w/ Anesthesia Additional Past Anesthesia/Blood Transfusion Reaction / Comm: hx. perforated t rachea from a past intubation for knee surg., has needed fiber optic intubation or "glide scope" due to scar tissue since Smoking Status: Former smoker - Past Family History Mother Family Medical History: COPD Additional Family Medical History / Comment(s): Pt states her mother is 70 yrs old and has some form of bone disease but pt cannot recall exactly what type. Father Family Medical History: Cancer Additional Family Medical History / Comment(s): Father of pancreatic cancer at the age of 71 yrs. Medications and Allergies Home Medications Medication Instructions Recorded Confirmed Type HYDROcodone/APAP 5-325MG [[place] 1 tab PO TID@0800,1200,1700 04/20/16 03/16/19 History 5-325] Butalb/Acetaminophen/Caffeine 1 cap PO Q6H PRN 12/14/17 03/16/19 History [Fioricet 50-325-40] Cyclobenzaprine [Flexeril] 5 mg PO HS 12/14/17 03/16/19 History Pramipexole Di-HCl [Pramipexole 1.5 mg PO TID@0800,1200,1700 12/14/17 03/16/19 History Dihydrochloride] Rasagiline Mesylate [Azilect] 1 mg PO HS 12/14/17 03/16/19 History Fluticasone Nasal [place] [Flonase 1 - 2 sprays EA NOSTRIL DAILY PRN 03/16/19 03/16/19 History Nasal [place]] Gabapentin 800 mg PO QID@08,12,17,20 03/16/19 03/16/19 History Melatonin 10 mg PO HS PRN 03/16/19 03/16/19 History SUMAtriptan SUCCINATE [Imitrex] 25 mg PO DAILY PRN 03/16/19 03/16/19 History Sulfamethox-Tmp 800-160Mg [Bactrim 1 tab PO Q12H 03/16/19 03/16/19 History DS 800-160 mg] Allergies Allergy/AdvReac Type Severity Reaction Status Date / Time vancomycin Allergy Severe Rapid Verified 03/17/19 11:54 Heart Rate sucralfate [From Carafate] Allergy ULCERS TO Verified 06/17/18 08:23 MOUTH AND THROAT Physical Examination The patient is a pleasant 53-year-old female who is in no acute distress. She is alert and oriented 3. Exam of the right lower extremity reveals a healed incision to the anterior aspect of the knee. There are chronic skin changes to the lower leg and slight erythema present. There is a superficial wound to the superior aspect of the knee incision. Slight surrounding erythema which seems to be improving. Some scabbing is present. There is a small area that is open and actively draining a clear yellow fluid. There is an area of surrounding induration and hardness approximately a width of 3-4 cm and length of 2 cm. The infection appears to be superficial and does not communicate with the knee joint. Calf is soft and nontender. No other open wounds are present. Good foot and ankle motion is present. Neurological and circulatory status is intact. Results - Labs Labs: Abnormal Lab Results - Last 24 Hours (Table) 03/16/19 03/16/19 Range/Units 15:15 19:21 Chloride 109 H (98-107) mmol/L BUN 19 H (7-17) mg/dL POC Glucose (mg/dL) 160 H (75-99) mg/dL Microbiology - Last 24 Hours (Table) 03/16/19 16:23 Wound Culture - Preliminary Knee - Right H & H 03/16/19 Range/Units 15:15 Hgb 12.3 (11.4-16.0) gm/dL Hct 39.3 (34.0-46.0) % Result Diagrams: 03/17/19 07:48 03/17/19 07:48 Assessment and Plan (1) Abscess of skin of right knee Current Visit: Yes Status: Acute Code(s): L02.415 - CUTANEOUS ABSCESS OF RIGHT LOWER LIMB SNOMED Code(s): 57764636667397450 (2) Bilateral lower extremity edema Current Visit: No Status: Acute Code(s): R60.0 - LOCALIZED EDEMA SNOMED Code(s): 672706749 (3) Cellulitis of right lower extremity Current Visit: No Status: Acute Code(s): L03.115 - CELLULITIS OF RIGHT LOWER LIMB SNOMED Code(s): 707252134 Plan: The clinical findings were discussed with the patient. The case was also discussed at length with Dr. Baugh. Continue IV antibiotics per infectious disease. No surgical intervention is planned at this time. No deep infection or total joint infection is suspected. Continue symptomatic treatment. May apply moist heat to the area. Continue pain control and ambulation. X-rays of the right knee have been ordered. No advanced imaging of the knee is warranted at this time. We will continue to follow the patient. <Todd Baugh - Last Filed: 03/17/19 16:54> Results - Labs Labs: Abnormal Lab Results - Last 24 Hours (Table) 03/16/19 03/17/19 03/17/19 Range/Units 19:21 07:48 07:48 Lymphocytes # 0.6 L (1.0-4.8) k/uL BUN 18 H (7-17) mg/dL Glucose 138 H (74-99) mg/dL POC Glucose (mg/dL) 160 H (75-99) mg/dL Microbiology - Last 24 Hours (Table) 03/16/19 16:23 Gram Stain - Preliminary Knee - Right Wound Culture - Preliminary H & H 03/16/19 03/17/19 Range/Units 15:15 07:48 Hgb 12.3 12.2 (11.4-16.0) gm/dL Hct 39.3 37.4 (34.0-46.0) % Result Diagrams: 03/17/19 07:48 03/17/19 07:48 Assessment and Plan Plan: Discussed with ARELIS Givens and agree with above. Patient was subsequently seen and examined by myself as well. S: The patient states that wound has substantially improved. There is only a small amount of drainage now. She has minimal pain with motion and weightbearing. O: 3 cm x 4 cm area of friable tissue over the anterolateral medial aspect of the knee. This is open and draining some purulent fluid. Minimal fluid was expressed with manual pressure. The surrounding tissue is dense, consistent with a chronic inflammatory process. There is no discrete subcutaneous fluctuance or focal fluid collection. A: 1. Right knee superficial abscess 2. History of bilateral total knee arthroplasties 3. Morbid obesity P: I discussed the clinical findings in detail with the patient. There is no sign of deep abscess or septic arthritis. According to the patient, the wound is clinically improving. I would not recommend any surgical intervention at this time. Continue local wound care with as-needed dressing changes. Antibiotics per infectious disease recommendations. After discharge, the patient was advised to contact Dr. Espinal for continued follow up. Thank you for allowing us to participate in the care of this patient. Todd Baugh D.O. [facility]
[2019-03-17] MEDS: FAMOTIDINE 20 MG/2 ML VIAL IV SCH (09:08)
[2019-03-17] MEDS: MULTIVITAMINS, THERA 1 EACH TAB PO SCH (09:08)
[2019-03-17] MEDS: DAPTOmycin 500 MG in SODIUM CHLORIDE 0.9% 50 ML IVPB SCH (09:08)
[2019-03-17] MEDS: GABAPENTIN 400 MG CAP PO SCH ×4 (09:08→21:00)
[2019-03-17] MEDS: HEPARIN SODIUM,PORCINE 5,000 UNIT/ML 1 ML VIAL SQ SCH ×2 (09:08→21:00)
[2019-03-17] MEDS: PANTOPRAZOLE 40 MG TABLET PO SCH (09:08)
[2019-03-17] MEDS: PRAMIPEXOLE 0.5 MG TAB PO SCH ×3 (09:09→17:03)
[2019-03-17 10:28] LABS: Appearance,Urine Clear (Clear); Bilirubin,Urine Negative (Negative); Blood,Urine Negative (Negative); Color,Urine Light Yellow; Glucose,Urine (UA) Negative (Negative); Ketones,Urine Negative (Negative); Leukocyte Esterase,Urine Negative (Negative); Nitrite,Urine Negative (Negative); Protein,Urine Negative (Negative); Specific Gravity,Urine 1.008 (1.001-1.035); Urobilinogen,Urine <2.0 mg/dL (<2.0)
--- NOTE | 2019-03-17 13:09 | XR ---
EXAMINATION TYPE: XR knee complete RT DATE OF EXAM: 03/17/2019 COMPARISON: 07/15/2012 HISTORY: Evaluate prosthesis components TECHNIQUE: Three-view right knee FINDINGS: No acute fractures or dislocations are evident. There is prominent soft tissues present. No joint effusion is evident. IMPRESSION: 1. No acute abnormality of the right knee prosthesis.. 2. No acute abnormality right knee
[2019-03-17] MEDS: HYDROcodone/APAP 5-325MG 1 EACH TAB PO PRN ×2 (13:11→21:10)
--- NOTE | 2019-03-17 14:20 | PN ---
PROGRESS NOTE DATE OF SERVICE: 03/17/2019 REASON FOR FOLLOWUP: Right knee and leg cellulitis. INTERVAL HISTORY: The patient is currently afebrile. Patient mentioning she seemed to have a problem after the vanco was started yesterday, she was itching, blood pressure went down and heart rate went high. The vanc was subsequently discontinued and daptomycin has been ordered which the patient has been currently tolerating. Patient denies having any chest pain or shortness of breath or cough and right knee and leg pain and swelling has slightly improved, no diarrhea. PHYSICAL EXAMINATION: Blood pressure is 98/62 with a pulse of 90, temperature 97.7, she is 95% on room air. General description is a middle-aged female up in the chair in no distress. RESPIRATORY SYSTEM: Unlabored breathing, clear to auscultation anteriorly. HEART: S1, S2. Regular rate and rhythm. ABDOMEN: Soft, no tenderness. Right knee and leg swelling has slightly decreased. LABS: White count 7.5, creatinine 0.66, wound cultures currently pending. Blood culture pending. X-rays of the knee did not show any abnormality. DIAGNOSTIC IMPRESSION AND PLAN: Patient admitted to the hospital with right knee and leg area cellulitis, failing outpatient oral antibiotic therapy, multiple courses. The patient is currently covered with daptomycin will continue while waiting for the culture to finalize. Likely need IV antibiotic on discharge because of failure of other oral antibiotics and no good oral option available. Continue supportive care. MMODL / IJN: [id number] /
[2019-03-17] MEDS: SODIUM CHLORIDE 0.9% 1,000 ML IV SCH (17:04)
--- NOTE | 2019-03-17 20:54 | PN ---
PROGRESS NOTE DATE OF SERVICE: 03/17/2019 This 53-year-old woman was admitted with pain and swelling of the right knee, cellulitis and possible abscess, is being closely monitored. The knee x-ray showed no acute abnormality. The patient was seen by Dr. Baugh and Dr. Sanon. Dr. Baugh is planning continued antibiotic treatment. The final cultures are pending at this time. No chest pain. No palpitations. No fever. EXAM: Alert and oriented x3. Pulse is 78, blood pressure 106/69, respirations 16, temp 97.2, pulse ox 94% on room air. HEENT: Conjunctivae normal. Oral mucosa moist. NECK: No jugular venous distention. No lymph node enlargement. CARDIOVASCULAR: S1, S2. RESPIRATORY: Diminished breath sounds at the bases. No rhonchi, no crackles. ABDOMEN: Soft, nontender. LEGS: Right knee swelling and erythema present.. NERVOUS SYSTEM: No focal deficits. LABS: CBC within normal limits. Sodium 137, potassium 4.8 and glucose is 138. ASSESSMENT: 1. Right knee cellulitis and abscess spontaneously draining at this time. 2. Bilateral leg lymphedema. 3. Obesity with body mass index of 56.7. 4. History of degenerative joint disease. 5. History of sleep apnea. 6. History of peripheral neuropathy. 7. History of cellulitis. 8. History of sleep apnea. 9. History of spinal stenosis. 10.History of MRSA, heel. 11.History of recent bilateral heel ulcers. 12.History of bariatric surgery. 13.History of hysterectomy. 14.Remote history of nicotine dependence. 15.FULL CODE. RECOMMENDATIONS AND DISCUSSION: This 53-year-old woman who presented with multiple complex medical issues, I recommend to continue the current medications, continue symptomatic treatment. Otherwise, at this time continue the antibiotics. The patient was on vancomycin which was discontinued and daptomycin was initiated by Dr. Sanon because of concerns of allergic reaction. Otherwise, we will continue to monitor. Further recommendations to follow. MMODL / IJN: [id number] /
[2019-03-17] MEDS: CYCLOBENZAPRINE 5 MG TAB PO SCH (21:00)
[2019-03-17] MEDS: RASAGILINE MESYLATE 1 MG PO SCH (21:00)
[2019-03-18 08:31] LABS: Basophils % (A) 0 %; Eosinophils # (A) 0.2 k/uL (0-0.7); Eosinophils % (A) 5 %; HCT 36.9 % (34.0-46.0); HGB 11.5 gm/dL (11.4-16.0); Lymphocytes # (A) 0.9 k/uL (1.0-4.8); Lymphocytes % (A) 18 %; MCH 28.9 pg (25.0-35.0); MCHC 31.3 g/dL (31.0-37.0); MCV 92.5 fL (80.0-100.0); Mean Platelet Volume 9.3; Monocytes # (A) 0.2 k/uL (0-1.0); Monocytes % (A) 5 %; Neutrophils # (A) 3.5 k/uL (1.3-7.7); Neutrophils % (A) 72 %; Platelet Count 189 k/uL (150-450); RBC 3.99 m/uL (3.80-5.40); WBC 4.9 k/uL (3.8-10.6)
[2019-03-18 08:48] LABS: African American GFR (CKD) >90 (>60 ml/min/1.73 sqM); Anion Gap 6 mmol/L; Blood Urea Nitrogen 16 mg/dL (7-17); Calcium 8.9 mg/dL (8.4-10.2); Carbon Dioxide 28 mmol/L (22-30); Chloride 104 mmol/L (98-107); Glucose 90 mg/dL (74-99); Non-African American GFR(CKD) >90 (>60 ml/min/1.73 sqM); Potassium 4.3 mmol/L (3.5-5.1); Sodium 138 mmol/L (137-145)
[2019-03-18] MEDS: DAPTOmycin 500 MG in SODIUM CHLORIDE 0.9% 50 ML IVPB SCH ×2 (08:53→21:43)
[2019-03-18] MEDS: HEPARIN SODIUM,PORCINE 5,000 UNIT/ML 1 ML VIAL SQ SCH ×2 (08:54→21:44)
[2019-03-18] MEDS: PANTOPRAZOLE 40 MG TABLET PO SCH (08:54)
[2019-03-18] MEDS: FAMOTIDINE 20 MG TAB PO SCH (08:54)
[2019-03-18] MEDS: MULTIVITAMINS, THERA 1 EACH TAB PO SCH (08:54)
[2019-03-18] MEDS: GABAPENTIN 400 MG CAP PO SCH ×4 (08:54→21:44)
[2019-03-18] MEDS: PRAMIPEXOLE 0.5 MG TAB PO SCH ×3 (08:54→17:54)
[2019-03-18] MEDS: HYDROcodone/APAP 5-325MG 1 EACH TAB PO PRN ×2 (11:15→21:43)
[2019-03-18] MEDS ORDERED: ALTEPLASE 2 MG VIAL (CATHFLO) IV STA (12:26)
--- NOTE | 2019-03-18 12:34 | PN ---
PROGRESS NOTE DATE OF SERVICE: 03/18/2019 REASON FOR FOLLOWUP: Right knee and lower extremity cellulitis. INTERVAL HISTORY: The patient is currently afebrile. The patient is breathing comfortably. The patient denies having any chest or any cough. No nausea, no vomiting. Overall pain and swelling to the right leg and knee area has improved, less drainage. PHYSICAL EXAMINATION: Blood pressure 105/70 with a pulse of 73, temperature 97.7, she is 97% on room air. General description is a middle-aged female, up in the bed in no distress. RESPIRATORY SYSTEM: Unlabored breathing, clear to auscultation anteriorly. HEART: S1, S2. Regular rate and rhythm. ABDOMEN: Soft, no tenderness. Right knee and leg area swelling has slightly decreased. LABS: White count of 4.9, creatinine 0.72. The right knee culture is currently pending. DIAGNOSTIC IMPRESSION AND PLAN: Patient with a right knee cellulitis, failing outpatient oral antibiotic therapy. Patient is currently covered with daptomycin, will continue while waiting for the culture to finalize and monitor clinical course closely. MMODL / IJN: [id number] /
--- NOTE | 2019-03-18 15:05 | P.PN ---
Subjective Progress Note Date: 03/18/19 Principal diagnosis: Right knee cellulitis, abcess The patient is a pleasant 53-year-old female seen at bedside this am. We are following her for her right knee abscess. She has been on IV antibiotics and states it has much improved over the past few days. A culture of the wound has been obtained and results are pending. She is being followed by Infectious disease as well. She states her pain is currently controlled. She states she has some pain on ambulation but mostly tightness in the anterior knee. She is able to move the knee without significant pain. She currently denies fever, chills, chest pain, shortness of breath, calf pain, new numbness/tingling or other. Objective - Vital Signs Vital signs: Vital Signs Temp 97.8 F 03/18/19 14:26 Pulse 66 03/18/19 14:26 Resp 16 03/18/19 14:26 BP 124/78 03/18/19 14:26 Pulse Ox 99 03/18/19 14:26 Intake & Output 03/17/19 03/18/19 03/18/19 18:59 06:59 18:59 Intake Total 850 Balance 850 Intake: Oral 850 Other: Voiding Method Toilet Toilet # Voids 2 1 3 - Exam In general she is in no acute distress. She is alert and oriented 3. Exam of the right lower extremity reveals a healed TKA incision to the anterior aspect of the knee. There are chronic skin changes to the lower leg and slight erythema present. There is a small superficial puncture type wound to the superior aspect of the knee incision with minimal purulent drainage. There is mild resolving surrounding erythema.. Some scabbing is present. There is an area of surrounding induration and hardness approximately a width of 3-4 cm and length of 2 cm. The infection appears to be superficial and does not communicate with the knee joint. Calf is soft and nontender. No other open wounds are present. Painless active foot and ankle motion is present. Neurological and circulatory status is intact. - Constitutional General appearance: Present: no acute distress - Labs CBC & Chem 7: 03/18/19 07:59 03/18/19 07:59 Labs: Abnormal Lab Results - Last 24 Hours (Table) 03/18/19 Range/Units 07:59 Lymphocytes # 0.9 L (1.0-4.8) k/uL Microbiology - Last 24 Hours (Table) 03/16/19 16:23 Gram Stain - Preliminary Knee - Right Wound Culture - Preliminary 03/16/19 15:15 Blood Culture - Preliminary Blood No Growth after 24 hours Assessment and Plan (1) Abscess of skin of right knee Narrative/Plan: No plans for immediate surgical intervention. She appears to be improving cl inically and does not appear to have a septic joint. Continue local wound care with as-needed dressing changes and antibiotics per infectious disease recommendations. Will continue to monitor while inpatient. After discharge, the patient was advised to contact Dr. Espinal for continued follow up. Current Visit: Yes Status: Acute Priority: Medium Code(s): L02.415 - CUTANEOUS ABSCESS OF RIGHT LOWER LIMB SNOMED Code(s): 34292117555307570 Time with Patient: Less than 30
[2019-03-18] MEDS: SODIUM CHLORIDE 0.9% 1,000 ML IV SCH (17:28)
--- NOTE | 2019-03-18 19:12 | PN ---
PROGRESS NOTE DATE OF SERVICE: 03/18/2019 This 53-year-old woman with a past medical history of multiple medical problems including right knee cellulitis and probably abscess is being closely monitored. Cultures are negative at this time. Patient started on broad-spectrum IV antibiotics, IV daptomycin. No chest pain. No palpitation. Orthopedic and Infectious Disease following the patient closely. EXAM: Alert and oriented x3. Pulse 66, blood pressure 124/70, respirations 16, temperature 97.8, pulse ox 98% on room air. HEENT: Conjunctivae normal. Oral mucosa moist. NECK: No jugular venous distention. No lymph node enlargement. CARDIOVASCULAR: S1, S2. RESPIRATORY: Diminished breath sounds at the bases. A few scattered rhonchi and crackles. ABDOMEN: Soft, obese, nontender. LEGS: Bilateral leg edema with some right knee cellulitis also present. Movements are improved. NERVOUS SYSTEM: No focal deficits. LAB: CBC, BMP within normal limits. ASSESSMENT: 1. Right knee cellulitis with abscess, spontaneously draining at this time with negative cultures so far. 2. Bilateral leg lymphedema. 3. Obesity with body mass index of 56.7. 4. History of degenerative joint disease. 5. History of sleep apnea. 6. History of peripheral neuropathy. 7. History of cellulitis. 8. History of med line on the left arm because of lack of IV access. 9. History of sleep apnea. 10.History of spinal stenosis. 11.History of MRSA, heel. 12.History of recent bilateral heel ulcers. 13.History of bariatric surgery. 14.History of hysterectomy. 15.History of remote nicotine dependence. 16.FULL CODE. RECOMMENDATIONS AND DISCUSSION: I recommend to continue current medication, continue symptomatic treatment, continue with antibiotic. Med line by Interventional Radiology. Otherwise, closely follow with Infectious Disease. Guarded prognosis because of multiple complex medical issues. Further recommendations to follow. MMODL / IJN: [id number] /
[2019-03-18] MEDS: CYCLOBENZAPRINE 5 MG TAB PO SCH (21:44)
[2019-03-18] MEDS: RASAGILINE MESYLATE 1 MG PO SCH (21:45)
[2019-03-19] MEDS: MULTIVITAMINS, THERA 1 EACH TAB PO SCH (07:57)
[2019-03-19] MEDS: GABAPENTIN 400 MG CAP PO SCH ×4 (07:57→21:03)
[2019-03-19] MEDS: FAMOTIDINE 20 MG TAB PO SCH (07:57)
[2019-03-19] MEDS: PANTOPRAZOLE 40 MG TABLET PO SCH (07:58)
[2019-03-19] MEDS: HEPARIN SODIUM,PORCINE 5,000 UNIT/ML 1 ML VIAL SQ SCH ×2 (07:58→21:03)
[2019-03-19] MEDS: PRAMIPEXOLE 0.5 MG TAB PO SCH ×3 (08:01→17:33)
[2019-03-19 08:52] LABS: Basophils % (A) 0 %; Eosinophils # (A) 0.4 k/uL (0-0.7); Eosinophils % (A) 8 %; HCT 35.3 % (34.0-46.0); HGB 11.3 gm/dL (11.4-16.0); Lymphocytes % (A) 22 %; MCH 29.7 pg (25.0-35.0); MCHC 31.9 g/dL (31.0-37.0); MCV 92.9 fL (80.0-100.0); Mean Platelet Volume 9.4; Monocytes # (A) 0.3 k/uL (0-1.0); Monocytes % (A) 7 %; Neutrophils # (A) 2.7 k/uL (1.3-7.7); Neutrophils % (A) 62 %; Platelet Count 174 k/uL (150-450); WBC 4.4 k/uL (3.8-10.6)
[2019-03-19 09:07] LABS: African American GFR (CKD) >90 (>60 ml/min/1.73 sqM); Anion Gap 6 mmol/L; Blood Urea Nitrogen 17 mg/dL (7-17); Calcium 8.1 mg/dL (8.4-10.2); Carbon Dioxide 25 mmol/L (22-30); Chloride 108 mmol/L (98-107); Glucose 102 mg/dL (74-99); Non-African American GFR(CKD) >90 (>60 ml/min/1.73 sqM); Potassium 4.6 mmol/L (3.5-5.1); Sodium 139 mmol/L (137-145)
--- NOTE | 2019-03-19 16:36 | P.PN ---
Subjective Progress Note Date: 03/19/19 Principal diagnosis: Right knee cellulitis, abcess The patient is a pleasant 53-year-old female seen at bedside today. We are following her for her right knee abscess. She has been on IV antibiotics and states it has much improved over the past few days. A culture of the wound has been obtained and results are negative. She is being followed by Infectious disease as well. She states her pain is currently controlled. She states she has some pain on ambulation but mostly tightness in the anterior knee. She is able to move the knee without significant pain. She currently denies fever, chills, chest pain, shortness of breath, calf pain, new numbness/tingling or other. Objective - Vital Signs Vital signs: Vital Signs Temp 97.9 F 03/19/19 13:27 Pulse 69 03/19/19 13:27 Resp 16 03/19/19 13:27 BP 125/73 03/19/19 13:27 Pulse Ox 94 L 03/19/19 13:27 Intake & Output 03/18/19 03/19/19 03/19/19 18:59 06:59 18:59 Intake Total 160 Balance 160 Intake: Intake, IV Titration 160 Amount Sodium Chloride 0.9% 1, 160 000 ml @ 20 mls/hr IV . Q24H [facility] Rx#:[id number] Other: Voiding Method Toilet # Voids 3 2 - Exam In general she is in no acute distress. She is alert and oriented 3. Exam of the right lower extremity reveals a healed TKA incision to the anterior aspect of the knee. There are chronic skin changes to the lower leg and slight erythema present. There is a small superficial puncture type wound to the superior aspect of the knee incision that is healing over. There is mild resolving surrounding erythema. There is an area of surrounding induration and hardness approximately a width of 3-4 cm and length of 2 cm. The infection appears to be superficial and does not communicate with the knee joint. Calf is soft and nontender. No other open wounds are present. Painless active foot and ankle motion is present. Neurological and circulatory status is intact. - Constitutional General appearance: Present: no acute distress - Labs CBC & Chem 7: 03/19/19 08:04 03/19/19 08:04 Labs: Abnormal Lab Results - Last 24 Hours (Table) 01/08/0103/19/19 03/19/19 Range/Units 08:04 08:04 08:04 Hgb 11.3 L (11.4-16.0) gm/dL ESR 43 H (0-20) mm/hr Chloride 108 H (98-107) mmol/L Glucose 102 H (74-99) mg/dL Calcium 8.1 L (8.4-10.2) mg/dL C-Reactive Protein (<10.0) mg/L 03/19/19 Range/Units 08:04 Hgb (11.4-16.0) gm/dL ESR (0-20) mm/hr Chloride (98-107) mmol/L Glucose (74-99) mg/dL Calcium (8.4-10.2) mg/dL C-Reactive Protein 12.8 H (<10.0) mg/L Microbiology - Last 24 Hours (Table) 03/16/19 16:23 Gram Stain - Final Knee - Right Wound Culture - Final 03/16/19 15:15 Blood Culture - Preliminary Blood No Growth after 48 hours Assessment and Plan (1) Abscess of skin of right knee Narrative/Plan: No plans for immediate surgical intervention. She appears to be improving clinically and does not appear to have a septic joint. Continue local wound care with as-needed dressing changes and antibiotics per infectious disease recommendations. Will continue to monitor while inpatient. After discharge, the patient was advised to contact Dr. Espinal for continued follow up. Current Visit: Yes Status: Acute Priority: Medium Code(s): L02.415 - CUTANEOUS ABSCESS OF RIGHT LOWER LIMB SNOMED Code(s): 28413965835285239 Time with Patient: Less than 30
[2019-03-19] MEDS: NYSTATIN 100,000UNIT/GM CREAM 30 GM TUBE TOPICAL SCH (17:35)
[2019-03-19] MEDS: TRIAMCINOLONE 0.1% CREAM 80 GM TUBE TOPICAL SCH (17:35)
[2019-03-19] MEDS: SODIUM CHLORIDE 0.9% 1,000 ML IV SCH (17:36)
--- NOTE | 2019-03-19 20:05 | PN ---
PROGRESS NOTE DATE OF SERVICE: 03/19/2019 This 53-year-old woman was admitted with right knee cellulitis and failure of outpatient treatment, being closely monitor. Cultures are negative. The patient had a med line placed on the left forearm yesterday, had significant access problems. No chest pain. No palpitations. No fever. EXAM: Alert and oriented x3. Pulse 69, blood pressure 124/70, respirations 16, temperature 97.8, pulse ox 94% on room air. HEENT: Conjunctivae normal. Oral mucosa moist. NECK: No jugular venous distention. No lymph node enlargement. CARDIOVASCULAR: S1, S2. RESPIRATORY: Diminished breath sounds at the bases. No rhonchi, no crackles. ABDOMEN: Soft, nontender. LEGS: Bilateral leg edema. Otherwise, right knee cellulitis.. NERVOUS SYSTEM: No focal deficits. LAB STUDIES: WBC 12.2, hemoglobin 11.3. ESR is 43 and C-reactive protein is 12.8. ASSESSMENT: 1. Right knee cellulitis with abscess spontaneously draining at this time with negative cultures so far with failure of outpatient treatment. 2. Bilateral leg lymphedema. 3. Obesity with body mass index of 56.7. 4. History of degenerative joint disease. 5. History of sleep apnea. 6. History of peripheral neuropathy. 7. History of cellulitis. 8. History of med line on the left arm with lack of IV access. 9. History of sleep apnea. 10.History of spinal stenosis. 11.History of MRSA, heel. 12.Recent bilateral heel ulcer. 13.History of bariatric surgery. 14.History of hysterectomy. 15.Remote history of nicotine dependence. 16.FULL CODE. RECOMMENDATIONS AND DISCUSSION: Recommend to continue current medications, continue symptomatic treatment. Recommend possible PICC line and IV antibiotics outpatient. Follow the final cultures closely with Infectious Disease. Guarded prognosis because of multiple complex medical issues. Further recommendations to follow. MMODL / IJN: [id number] /
[2019-03-19] MEDS ORDERED: NYSTAT-TRIAMCIN 100,000-0.1 UNIT/GM-% CREAM 30 GM TUBE TOPICAL SCH (21:00)
[2019-03-19] MEDS: CYCLOBENZAPRINE 5 MG TAB PO SCH (21:03)
[2019-03-19] MEDS: DAPTOmycin 500 MG in SODIUM CHLORIDE 0.9% 50 ML IVPB SCH (21:03)
[2019-03-19] MEDS: RASAGILINE MESYLATE 1 MG PO SCH (21:04)
[2019-03-19] MEDS: HYDROcodone/APAP 5-325MG 1 EACH TAB PO PRN (21:08)
--- NOTE | 2019-03-20 07:12 | PN ---
PROGRESS NOTE DATE OF SERVICE: 03/19/2019 REASON FOR FOLLOWUP: Right knee cellulitis. INTERVAL HISTORY: The patient is currently afebrile. The patient is breathing comfortably. The patient denies having any chest pain, shortness of breath or cough. No nausea or vomiting. Denies any worsening of pain to the right knee area. PHYSICAL EXAMINATION: Blood pressure 125/73 with a pulse of 69, temperature 97.9. She is 94% on room air. General description is a middle-aged female up in the chair in no distress. RESPIRATORY SYSTEM: Unlabored breathing, clear to auscultation anteriorly. HEART: S1, S2. Regular rate and rhythm. ABDOMEN: Soft, no tenderness. Right knee swelling and redness has improved and seems much improved from the pictures that the patient showed me. LABS: Hemoglobin 11.3, white count 4.4. Sed rate of 43. CRP is only elevated 12.8. White count has been normal. Wound culture remains to be negative. DIAGNOSTIC IMPRESSION AND PLAN: Patient with right knee cellulitis in this patient who has failed outpatient multiple antibiotic therapy. The patient is currently afebrile. White count has been normal though sedimentation rate elevated. CRP was not significantly elevated. Will wait for her outpatient IV antibiotic coverage if she has maybe switch her over to Rocephin 2 grams daily for 2 weeks with close outpatient followup. Local care with Mycolog cream and monitor clinical course closely. MMODL / IJN: [id number] /
[2019-03-20] MEDS: MULTIVITAMINS, THERA 1 EACH TAB PO SCH (07:25)
[2019-03-20] MEDS: FAMOTIDINE 20 MG TAB PO SCH (07:25)
[2019-03-20] MEDS: HEPARIN SODIUM,PORCINE 5,000 UNIT/ML 1 ML VIAL SQ SCH ×2 (07:25→20:56)
[2019-03-20] MEDS: NYSTATIN 100,000UNIT/GM CREAM 30 GM TUBE TOPICAL SCH ×2 (07:25→20:57)
[2019-03-20] MEDS: TRIAMCINOLONE 0.1% CREAM 80 GM TUBE TOPICAL SCH ×2 (07:25→20:57)
[2019-03-20] MEDS: PANTOPRAZOLE 40 MG TABLET PO SCH (07:25)
[2019-03-20] MEDS: GABAPENTIN 400 MG CAP PO SCH ×4 (07:25→20:55)
[2019-03-20] MEDS: PRAMIPEXOLE 0.5 MG TAB PO SCH ×3 (07:25→16:19)
[2019-03-20] MEDS ORDERED: LIDOCAINE 1% INJ 10MG/ML (20 ML MDV) ONE (14:58)
--- NOTE | 2019-03-20 15:22 | IR ---
PICC LINE PLACEMENT: HISTORY: Infection requiring long-term antibiotic therapy PROCEDURE: Ultrasound and fluoroscopic guidance of PICC line placement. COMPLICATIONS: None ANESTHESIA: 1. 1% Lidocaine locally. FINDINGS/TECHNIQUE: The procedure was explained to the patient. The risks, complications, benefits and alternatives were discussed and any questions were answered. Informed consent was obtained. The patient was placed supine on the fluoroscopic table and prepped and draped in the usual sterile fash ion. Utilizing a 21 gauge needle and sonographic and fluoroscopic guidance, access in the left basi lic vein was achieved and there is placement of a 0.018 guidewire. The vein is patent. A 4-F sheath was placed over the guidewire. The guidewire and dilator were removed and a 4-F. PICC line was plac ed through the sheath with the tip at the level of the SVC. The sheath was removed, the catheter was flushed and sutured into position. The patient was stable throughout the procedure and remained sta ble upon discharge from the Department of Radiology. The vein puncture was patent under ultrasound. A rivas scale image was obtained to document patency of the vein punctured. All elements of the maximal barrier technique were utilized. FLUOROSCOPY TIME: 0.2 minutes and one image submitted IMPRESSION: Successful PICC line placement under ultrasound and fluoroscopic guidance.
[2019-03-20] MEDS: SODIUM CHLORIDE 0.9% 1,000 ML IV SCH (15:40)
--- NOTE | 2019-03-20 17:51 | PN ---
PROGRESS NOTE DATE OF SERVICE: 03/20/2019 This 53-year-old woman was admitted with right knee cellulitis and abscess, is spontaneously draining at this time. The cultures are negative so far. The midline insert is not working at this time. PICC line has been recommended and possibly outpatient antibiotics per Infectious Disease. No chest pain. No palpitations. No fever. EXAM: Alert and oriented times three. Pulse 62. Blood pressure 130/72, respiration 18, temp 97.4, pulse ox 98% on room air. HEENT: Conjunctivae normal. NECK: No JVD. CARDIOVASCULAR: S1, S2 normal. RESPIRATIONS: Breath sounds diminished in the bases. No rhonchi. No crackles. ABDOMEN is soft, obese. Nontender. LEGS: Bilateral leg edema. Right knee cellulitis and abscess present, slightly improving at this time. LABORATORY DATA: Labs are WBC 4.4, hemoglobin 11.3 and C-reactive protein is 12.8. ASSESSMENT: 1. Acute right knee cellulitis with abscess spontaneously draining at this time with negative cultures so far with failure of outpatient treatment. 2. Bilateral leg lymphedema. 3. Obesity with body mass index of 56.7. 4. History of degenerative joint disease. 5. History of sleep apnea. 6. History of peripheral neuropathy. 7. History of cellulitis. 8. History of midline of the left arm with lack of IV access, not functioning at this time. 9. History of sleep apnea. 10.History of spinal stenosis. 11.History of MRSA, heel. 12.History of recent bilateral heel ulcers. 13.History of bariatric surgery. 14.History of hysterectomy. 15.Remote history of nicotine dependence. 16.FULL CODE. RECOMMENDATIONS AND DISCUSSION: I recommend to continue current medications, symptomatic treatment. Otherwise, at this time, I recommend continue with IV antibiotics. PICC line. Follow closely with Infectious Disease. Guarded prognosis. Further recommendations to follow. MMODL / IJN: [id number] /
[2019-03-20] MEDS: HYDROcodone/APAP 5-325MG 1 EACH TAB PO PRN (18:39)
--- NOTE | 2019-03-20 18:42 | PN ---
PROGRESS NOTE DATE OF SERVICE: 03/20/2019. REASON FOR FOLLOWUP: Right knee cellulitis. INTERVAL HISTORY: The patient is currently afebrile. The patient has been breathing comfortably. The patient denies having any chest pain. No shortness of breath. No cough. No nausea, vomiting, or any worsening pain to the right knee area. PHYSICAL EXAMINATION: Blood pressure 135/72 with a pulse of 62. Temperature 97.4, she is 99% on room air. General description is a middle-aged female up in the bed in no distress. Respiratory system: Unlabored breathing, clear to auscultation anteriorly. Heart S1, S2. Regular rate and rhythm. Abdomen soft, no tenderness. Right knee swelling and redness has slightly decreased. No drainage. LABS: Sedimentation rate of 43 with a CRP of 12.8. Cultures remain to be negative. DIAGNOSTIC IMPRESSION AND PLAN: Patient with right knee cellulitis and has failed outpatient therapy. Cultures done here has been negative for any resistant pathogen. Recommend a short course of IV Rocephin 2 g daily through PICC line. Local care to continue with Mycolog cream and close outpatient followup. MMODL / IJN: [id number] /
[2019-03-20] MEDS: RASAGILINE MESYLATE 1 MG PO SCH (20:56)
[2019-03-20] MEDS: CYCLOBENZAPRINE 5 MG TAB PO SCH (20:56)
[2019-03-20] MEDS: DAPTOmycin 500 MG in SODIUM CHLORIDE 0.9% 50 ML IVPB SCH (20:57)
[2019-03-21] MEDS: FAMOTIDINE 20 MG TAB PO SCH (07:03)
[2019-03-21] MEDS: GABAPENTIN 400 MG CAP PO SCH ×2 (07:03→11:02)
[2019-03-21] MEDS: HEPARIN SODIUM,PORCINE 5,000 UNIT/ML 1 ML VIAL SQ SCH (07:04)
[2019-03-21] MEDS: PRAMIPEXOLE 0.5 MG TAB PO SCH ×2 (07:04→11:02)
[2019-03-21] MEDS: PANTOPRAZOLE 40 MG TABLET PO SCH (07:04)
[2019-03-21] MEDS: TRIAMCINOLONE 0.1% CREAM 80 GM TUBE TOPICAL SCH (07:05)
[2019-03-21] MEDS: NYSTATIN 100,000UNIT/GM CREAM 30 GM TUBE TOPICAL SCH (07:05)
[2019-03-21] MEDS: MULTIVITAMINS, THERA 1 EACH TAB PO SCH (11:02)
[2019-03-21 13:09] VITALS: BP 147/83; PULSE 76; RESP 16; TEMP 97
--- NOTE | 2019-03-21 18:12 | PN ---
PROGRESS NOTE DATE OF SERVICE: 03/21/2019 REASON FOR FOLLOWUP: Right knee cellulitis. INTERIM HISTORY: The patient is currently afebrile. The patient has ( ). Patient denies having any chest pain or shortness of breath or cough. No nausea, vomiting. No abdominal pain or diarrhea. EXAMINATION: Blood pressure 144/93 with pulse of 73, temperature 97, she is 99% on room air. General description is a middle-aged female up in the chair in no distress. Respiratory system: Unlabored breathing, clear to auscultation anteriorly. Heart S1, S2. Regular rate and rhythm. Abdomen soft, no tenderness. Right knee ( ) improvement. No drainage was noticed. DIAGNOSTIC IMPRESSION/PLAN: 1. Patient with right knee cellulitis. Cultures have been negative. We will continue with dry Aquacel Silver dressing ( ). MMODL / IJN: [id number] /
--- NOTE | 2019-03-22 01:51 | DS ---
DISCHARGE SUMMARY DATE OF SERVICE: 03/21/2019. FINAL DIAGNOSES: 1. Acute right knee cellulitis with abscess spontaneously draining at that time with negative cultures so far with failure of outpatient treatment. 2. Bilateral leg lymphedema. 3. Obesity with body mass index of 56.7. 4. Status post PICC line insertion. 5. History of degenerative joint disease. 6. History of sleep apnea. 7. History of peripheral neuropathy. 8. History of cellulitis. 9. History of midline on the left arm with lack of IV access malfunctioning. 10.History of sleep apnea. 11.History of spinal stenosis. 12.History of MRSA, healed. 13.History of recent bilateral heel ulcers. 14.History of bariatric surgery. 15.History hysterectomy. 16.Remote history of nicotine dependence. 17.FULL CODE. DISCHARGE DISPOSITION: The patient being discharged in stable condition with guarded prognosis. HISTORY OF PRESENT ILLNESS: This 53-year-old woman with a past medical history of multiple medical problems as mentioned earlier, being followed by Dr. Ponce in the outpatient setting was admitted with right knee cellulitis and failure of outpatient treatment. The patient cleared by Orthopedic surgery, Dr. Baugh and as well as Dr. Sanon, surgery was not consulted and I would not consider at this time because there is no real abscess and cultures are negative so far. The C-reactive protein is 12.8, and Dr. Sanon recommended outpatient antibiotics through a PICC line. A midline was attempted initially because did not function properly. On exam, vitals are stable. Cardiovascular S1, S2. Abdomen soft. Nervous system: Right knee cellulitis improving. DISCHARGE ADVICE AND MEDICATIONS: 1. Diet is cardiac diet. 2. Activity limited until followup. 3. Follow with Dr. Ponce in 2-3 days. DISCHARGE MEDICATIONS: 1. Azilect 1 mg q.h.s. 2. Butalbital p.r.n. 3. Flexeril 5 mg q.h.s. 4. Fluticasone nasal spray as before. 5. Gabapentin 800 mg p.o. q.i.d. 6. Imitrex 25 mg daily p.r.n. 7. Melatonin 10 mg q.h.s. p.r.n. 8. Hydrocodone 5 mg p.o. t.i.d. 9. Pramipexole 1.5 mg p.o. t.i.d. 10.Multivitamins 1 p.o. daily. 11.Nystatin triamcinolone cream topical local application. 12.Rocephin 2 g IV daily for 2 weeks. Once again the patient being discharged in stable condition. Guarded prognosis. Follow up with Dr. Espinal as recommended. MMLETICIAL / CALEBN: [id number] /
== END 2019-03-21 14:39 | disposition home health service (06) | DRG 603 ==
LOC: 6NMEDSUR 14:48
PROVIDERS: ADMIT Hospitalist; ATTEND Hospitalist
PROC: 02HV33Z Insertion of Infusion Device into Superior Vena Cava, Percutaneous Approach (ICD-10-PCS; principal; 2019-03-20 11:20)
DX: L03.115 Cellulitis of right lower limb (principal); Z68.43 Body mass index [BMI] 50.0-59.9, adult; L02.415 Cutaneous abscess of right lower limb; Z96.653 Presence of artificial knee joint, bilateral; I89.0 Lymphedema, not elsewhere classified; M19.90 Unspecified osteoarthritis, unspecified site; E66.01 Morbid (severe) obesity due to excess calories; G47.30 Sleep apnea, unspecified; Z79.2 Long term (current) use of antibiotics; Z80.0 Family history of malignant neoplasm of digestive organs; Z82.5 Family history of asthma and other chronic lower respiratory diseases; Z86.14 Personal history of Methicillin resistant Staphylococcus aureus infection; Z87.891 Personal history of nicotine dependence; Z90.710 Acquired absence of both cervix and uterus; Z98.84 Bariatric surgery status; Z99.89 Dependence on other enabling machines and devices; Z88.1 Allergy status to other antibiotic agents; Z88.8 Allergy status to other drugs, medicaments and biological substances
CPT/HCPCS: 36410; 36573; 76937; 80048; 80053; 81003; 85025; 85652; 86140; 87040; 87070; 87205; 90686; 90732; 93005

== ENCOUNTER → 2022-04-03 | Outpatient (CLI) | payer MEDICARE, OTHER ==
[2022-04-03 13:39] LABS: Basophils % (A) 0 %; Eosinophils # (A) 0.2 k/uL (0-0.7); Eosinophils % (A) 4 %; HCT 30.8 % (34.0-46.0); HGB 9.5 gm/dL (11.4-16.0); Hypochromasia Slight; Lymphocytes # (A) 0.6 k/uL (1.0-4.8); Lymphocytes % (A) 11 %; MCH 27.4 pg (25.0-35.0); MCV 88.3 fL (80.0-100.0); Mean Platelet Volume 8.1; Monocytes # (A) 0.2 k/uL (0-1.0); Monocytes % (A) 3 %; Neutrophils # (A) 4.4 k/uL (1.3-7.7); Neutrophils % (A) 80 %; Platelet Count 207 k/uL (150-450); RBC 3.49 m/uL (3.80-5.40); RDW 15.6 % (11.5-15.5); WBC 5.5 k/uL (3.8-10.6)
[2022-04-03 13:57] LABS: ALT 19 U/L (4-34); AST 29 U/L (14-36); African American GFR (CKD) 61 (>60 ml/min/1.73 sqM); Albumin 3.6 g/dL (3.5-5.0); Albumin/Globulin Ratio 1.1; Alkaline Phosphatase 103 U/L (38-126); Anion Gap 5 mmol/L; Blood Urea Nitrogen 23 mg/dL (7-17); Calcium 8.4 mg/dL (8.4-10.2); Carbon Dioxide 27 mmol/L (22-30); Chloride 103 mmol/L (98-107); Globulin 3.4 g/dL; Glucose 78 mg/dL (74-99); Non-African American GFR(CKD) 53 (>60 ml/min/1.73 sqM); Potassium 4.5 mmol/L (3.5-5.1); Sodium 135 mmol/L (137-145); Total Bilirubin 0.3 mg/dL (0.2-1.3)
== END | disposition home or self-care (01) ==
LOC: LABWHC1 12:50
PROVIDERS: ATTEND Psychiatry & Neurology Pain Medicine
DX: T14.90XA Injury, unspecified, initial encounter (principal); R41.0 Disorientation, unspecified; X58.XXXA Exposure to other specified factors, initial encounter
CPT/HCPCS: 36415; 80053; 85025

== ENCOUNTER → 2022-07-01 | Outpatient (CLI) | payer MEDICARE, OTHER ==
--- NOTE | 2022-07-02 08:29 | MM ---
Reason for Exam: Screening (asymptomatic). Last mammogram was performed 8 year(s) and 2 month(s) ago. Patient History: Menarche at age 15. First Full-Term at age 21. Left ovary removed at age 50. Right ovary removed at age 50. Hysterectomy at age 50. Hormonal Contraceptives for 3 years from age 21 until age 24. Paternal grandmother had breast cancer, age 55. Risk Values: Roseann 5 year model risk: 0.8%. NCI Lifetime model risk: 6.1%. Prior Study Comparison: 12/24/2010 Bilateral Screening Mammogram, [facility]. 12/30/2011 Bilateral Screening Mammogram, [facility]. 04/17/2014 Bilateral Screening Mammogram, [facility]. Tissue Density: There are scattered fibroglandular densities. Findings: Analyzed By CAD. There is no suspicious group of microcalcifications or new suspicious mass in either breast. Vascular calcifications within the left breast. Overall Assessment: Benign, BI-RAD 2 Management: Screening Mammogram of both breasts in 1 year. A clinical breast exam by your physician is recommended on an annual basis and results should be correlated with mammographic findings. Electronically signed and approved by: Jhonatan Pascal D.O.
== END | disposition home or self-care (01) ==
LOC: RADMAMWWP 13:32
PROVIDERS: ATTEND Internal Medicine Hematology & Oncology
DX: Z12.31 Encounter for screening mammogram for malignant neoplasm of breast (principal); Z80.3 Family history of malignant neoplasm of breast
CPT/HCPCS: 77063; 77067

== ENCOUNTER → 2024-01-26 | Outpatient (CLI) | payer MEDICARE, OTHER ==
--- NOTE | 2024-01-30 14:48 | MM ---
Reason for Exam: Screening (asymptomatic). Last mammogram was performed 1 year(s) and 7 month(s) ago. Patient History: Menarche at age 15. First Full-Term at age 21. Left ovary removed at age 50. Right ovary removed at age 50. Hysterectomy at age 50. Postmenopausal. Hormonal Contraceptives for 3 years from age 21 until age 24. Paternal grandmother had breast cancer, age 55. Risk Values: Roseann 5 year model risk: 0.9%. NCI Lifetime model risk: 5.9%. Prior Study Comparison: 12/30/2011 Bilateral Screening Mammogram, [facility]. 04/17/2014 Bilateral Screening Mammogram, [facility]. 07/01/2022 Bilateral MG 3D screening mammo w/cad, [facility]. Tissue Density: There are scattered areas of fibroglandular density. Findings: Analyzed By CAD. The pattern is symmetrical. No significant interval change. No suspicious groups of microcalcifications, spiculated or lobular masses, architectural distortion or other secondary signs of malignancy are mammographically apparent. Overall Assessment: Benign, BI-RAD 2 Management: Screening Mammogram of both breasts in 1 year. A negative mammogram report should not preclude additional follow up of suspicious palpable abnormalities. Patient should continue monthly self breast exam. A clinical breast exam by your physician is recommended on an annual basis and results should be correlated with mammographic findings. Note on Roseann scores and lifetime risk: 1. A Roseann score greater than 3% is considered moderate risk. If this is the case, consider specialist referral to assess eligibility for a risk reducing agent. 2. If overall lifetime risk for the development of breast cancer is 20% or higher, the patient may qualify for future screening with alternating mammogram and breast MRI. [facility], , 01/30/2024 2:45 PM. Electronically signed and approved by: Richard Sanchez D.O. Radiologis
== END | disposition home or self-care (01) ==
LOC: RADMAMWWP 11:11
PROVIDERS: ATTEND Internal Medicine Hematology & Oncology
DX: Z12.31 Encounter for screening mammogram for malignant neoplasm of breast (principal); R92.323 Mammographic fibroglandular density, bilateral breasts; Z78.0 Asymptomatic menopausal state; Z80.3 Family history of malignant neoplasm of breast
CPT/HCPCS: 77063; 77067